=== PATIENT | female | born 1955 | race Caucasian/White ===

== ENCOUNTER 2020-06-14 16:43 | Emergency (ER) | payer MEDICARE, OTHER ==
[~2020-06-14] VITALS: Ht 172.7 cm; Wt 75.0 kg
[2020-06-14 17:17] LABS: HEMATOCRIT 35 % (35-52); MEAN CORPUSCULAR HEMOGLOBIN 34 PG (25-34); MEAN CORPUSCULAR HGB CONC 35 G/DL (32-36); MEAN CORPUSCULAR VOLUME 99 FL (80-99)
[2020-06-14 17:18] LABS: BASOPHILS # (AUTO) 0.1 10^3/uL (0.0-0.1); BASOPHILS % (AUTO) 2 % (0-10); EOSINOPHILS # (AUTO) 0.1 10^3/uL (0.0-0.3); EOSINOPHILS % (AUTO) 3 % (0-10); LYMPHOCYTES % (AUTO) 25 % (12-44); MEAN PLATELET VOLUME 10.8 FL (7.4-10.4); MONOCYTES # (AUTO) 0.3 X 10^3 (0.0-1.0); MONOCYTES % (AUTO) 7 % (0-12); NEUTROPHILS # (AUTO) 2.6 X 10^3 (1.8-7.8); NEUTROPHILS % (AUTO) 63 % (42-75); PLATELET COUNT 178 10^3/uL (130-400)
[2020-06-14 17:29] LABS: ALANINE AMINOTRANSFERASE 23 U/L (0-55); ALBUMIN 4.8 GM/DL (3.2-4.5); ALKALINE PHOSPHATASE 52 U/L (40-136); BILIRUBIN,TOTAL 0.6 MG/DL (0.1-1.0); BUN/CREATININE RATIO 10; CALCIUM 9.6 MG/DL (8.5-10.1); CARBON DIOXIDE 28 MMOL/L (21-32); CHLORIDE 97 MMOL/L (98-107); CREATININE SERUM 1.22 MG/DL (0.60-1.30); GFR ESTIMATED 44; GLUCOSE 135 MG/DL (70-105); POTASSIUM 3.7 MMOL/L (3.6-5.0); SODIUM 138 MMOL/L (135-145); TOTAL PROTEIN 7.3 GM/DL (6.4-8.2)
--- NOTE | 2020-06-14 17:33 | ED General ---
General Chief Complaint: Laceration Stated Complaint: LACERATIONS Nursing Triage Note: Patient presents to the ED via EMS with c/o right ear laceration that he was unable to get to stop bleeding. Patient reports that he was trying to feed his cats when he lost his balance and fell. He denies any loss of conciousness. Nursing Sepsis Screen: No Definite Risk Source of Information: Patient, EMS History of Present Illness Date Seen by Provider: Jun 14, 2020 Time Seen by Provider: 16:45 Initial Comments 65-year-old male presents via EMS with complaint of a fall and bleeding from his right ear. Patient denies loss of consciousness, headache or weakness. Patient does not have a primary care doctor, has not seen a doctor for years and is taking no medication. Does not know how he fell or what happened, he denies loss of consciousness and states that he does fall frequently and feels like he is off balance often and this is been going on for a long time. Denies any recent illness, fever or chills. Denies chest pain or shortness of air. Denies abdominal pain nausea vomiting or diarrhea. Has normal appetite. He does live alone and is otherwise without complaint other than the bleeding. Allergies and Home Medications Allergies Coded Allergies: No Known Drug Allergies (Unverified , 06/14/20) Patient Home Medication List Home Medication List Reviewed: Yes Review of Systems Review of Systems Constitutional: No dizziness, No fever, No malaise, No weakness EENTM: other (bleeding from Right ear- fall w injury); No ear discharge, No hearing loss, No ear pain, No blurred vision, No double vision, No eye pain, No vision loss Respiratory: no symptoms reported Cardiovascular: no symptoms reported Musculoskeletal: No back pain, No joint pain Skin: No change in color, No lesions, No rash Psychiatric/Neurological: See HPI; Denies Headache, Denies Numbness, Denies Paresthesia, Denies Seizure, Denies Tremors, Denies Weakness; Other (frequent falls) Past Menxorh-Jhjmqd-Tbhsbp Hx Past Med/Social Hx: Reviewed Nursing Past Med/Soc Hx Patient Social History Alcohol Use: Denies Use Smoking Status: Current Everyday Smoker Type Used: Cigarettes 2nd Hand Smoke Exposure: No Recent Infectious Disease Expo: No Recent Hopitalizations: No Seasonal Allergies Seasonal Allergies: No Past Medical History Surgeries: Yes (Cataract removal) Eye Surgery Respiratory: No Cardiac: No Neurological: No Genitourinary: No Gastrointestinal: No Musculoskeletal: No Endocrine: No HEENT: No Cataract Cancer: No Psychosocial: No Integumentary: No Blood Disorders: No Physical Exam Vital Signs Vital Signs - First Documented 06/14/20 16:43 Temp 35.8 Pulse 92 Resp 18 B/P (MAP) 140/99 (113) Pulse Ox 100 O2 Delivery Room Air Capillary Refill : Less Than 3 Seconds Height, Weight, BMI Height: '" Weight: lbs. oz. 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 3cm) Procedures/Interventions Wound Location: Ears Wound Length (cm): 3 Wound's Depth, Shape: irregular, contused tissue Wound Explored: clean Anesthesia: 0.5% Sensorcaine Volume Anesthetic (ccs): 4 Suture: Vicryl Suture Size: 5-0 Number of Sutures: 10 Sterile Dressing Applied?: Yes Progress/Results/Core Measures Suspected Sepsis Recent Fever Within 48 Hours: No Infection Criteria Present: None New/Unexplained Altered Menta: No Sepsis Screen: No Definite Risk SIRS Temperature: Pulse: 92 Respiratory Rate: 18 Laboratory Tests 06/14/20 17:00: White Blood Count 4.0L Blood Pressure 140 /99 Mean: 113 Laboratory Tests 06/14/20 17:00: Creatinine 1.22, Platelet Count 178, Total Bilirubin 0.6 Results/Orders Lab Results Laboratory Tests Test 06/14/20 17:00 Range/Units White Blood Count 4.0 L 4.3-11.0 10^3/uL Red Blood Count 3.51 L 4.35-5.85 10^6/uL Hemoglobin 12.0 11.5-16.0 G/DL Hematocrit 35 35-52 % Mean Corpuscular Volume 99 80-99 FL Mean Corpuscular Hemoglobin 34 25-34 PG Mean Corpuscular Hemoglobin Concent 35 32-36 G/DL Red Cell Distribution Width 13.1 10.0-14.5 % Platelet Count 178 130-400 10^3/uL Mean Platelet Volume 10.8 H 7.4-10.4 FL Immature Granulocyte % (Auto) 1 % Neutrophils (%) (Auto) 63 42-75 % Lymphocytes (%) (Auto) 25 12-44 % Monocytes (%) (Auto) 7 0-12 % Eosinophils (%) (Auto) 3 0-10 % Basophils (%) (Auto) 2 0-10 % Neutrophils # (Auto) 2.6 1.8-7.8 X 10^3 Lymphocytes # (Auto) 1.0 1.0-4.0 X 10^3 Monocytes # (Auto) 0.3 0.0-1.0 X 10^3 Eosinophils # (Auto) 0.1 0.0-0.3 10^3/uL Basophils # (Auto) 0.1 0.0-0.1 10^3/uL Immature Granulocyte # (Auto) 0.0 0.0-0.1 10^3/uL Sodium Level 138 135-145 MMOL/L Potassium Level 3.7 3.6-5.0 MMOL/L Chloride Level 97 L 98-107 MMOL/L Carbon Dioxide Level 28 21-32 MMOL/L Anion Gap 13 5-14 MMOL/L Blood Urea Nitrogen 12 7-18 MG/DL Creatinine 1.22 0.60-1.30 MG/DL Estimat Glomerular Filtration Rate 44 BUN/Creatinine Ratio 10 Glucose Level 135 H 70-105 MG/DL Calcium Level 9.6 8.5-10.1 MG/DL Corrected Calcium 8.5-10.1 MG/DL Total Bilirubin 0.6 0.1-1.0 MG/DL Aspartate Amino Transf (AST/SGOT) 33 5-34 U/L Alanine Aminotransferase (ALT/SGPT) 23 0-55 U/L Alkaline Phosphatase 52 40-136 U/L Total Protein 7.3 6.4-8.2 GM/DL Albumin 4.8 H 3.2-4.5 GM/DL Serum Alcohol < 10 <10 MG/DL My Orders Orders - ROVENSTINE,YAJAIRA L DO Ed Iv/Invasive Line Start (06/14/20 16:53) Comprehensive Metabolic Panel (06/14/20 16:53) Cbc With Automated Diff (06/14/20 16:53) Alcohol (06/14/20 16:58) Vital Signs/I&O 06/14/20 06/14/20 16:43 18:00 Temp 35.8 35.8 Pulse 92 87 Resp 18 18 B/P (MAP) 140/99 (113) 152/87 (113) Pulse Ox 100 100 O2 Delivery Room Air Capillary Refill : Less Than 3 Seconds Blood Pressure Mean: 113 Departure Impression Primary Impression: Frequent falls Additional Impression: Laceration of ear, external, right Qualified Codes: S01.311A - Laceration without foreign body of right ear, initial encounter Disposition: 01 HOME, SELF-CARE Condition: Improved Departure-Patient Inst. Decision time for Depature: 17:28 Patient Instructions: Laceration Repair With Stitches ED Add. Discharge Instructions: establish a medical provider through the [facility] clinic. Call tomorrow to schedule an appointment in the next 1 to 2 weeks regarding your frequent falls. Your stitches on your right ear are dissolvable and do not need to be removed unless still present in 2 weeks. All discharge instructions reviewed with patient and/or family. Voiced understanding. YAJAIRA ROGERS DO Jun 14, 2020 17:33
[2020-06-14 18:00] VITALS: BP 152/87
== END 2020-06-14 18:02 | disposition home or self-care (01) ==
LOC: ER FS 16:44
DX: S01.311A Laceration without foreign body of right ear, initial encounter (principal); R29.6 Repeated falls; F17.210 Nicotine dependence, cigarettes, uncomplicated; W19.XXXA Unspecified fall, initial encounter
CPT/HCPCS: 36415; 80053; 85025; 99284; G0480; 80320

== ENCOUNTER → 2020-07-05 | Outpatient (CLI) | payer MEDICARE ==
[2020-07-05 11:44] LABS: BUN/CREATININE RATIO 22; CARBON DIOXIDE 26 MMOL/L (21-32); CHLORIDE 105 MMOL/L (98-107); CREATININE SERUM 0.98 MG/DL (0.60-1.30); GFR ESTIMATED > 60; POTASSIUM 3.8 MMOL/L (3.6-5.0); SODIUM 141 MMOL/L (135-145)
[2020-07-05 11:45] LABS: ALANINE AMINOTRANSFERASE 10 U/L (0-55); ALBUMIN 4.7 GM/DL (3.2-4.5); ALKALINE PHOSPHATASE 49 U/L (40-136); BILIRUBIN,TOTAL 0.4 MG/DL (0.1-1.0); CALCIUM 10.1 MG/DL (8.5-10.1); GLUCOSE 98 MG/DL (70-105); TOTAL PROTEIN 7.7 GM/DL (6.4-8.2)
--- NOTE | 2020-07-05 13:06 | Diagnostic Imaging Report ---
PROCEDURE: CT head without contrast. TECHNIQUE: Multiple contiguous axial images were obtained through the brain without the use of intravenous contrast. Auto Exposure Controls were utilized during the CT exam to meet ALARA standards for radiation dose reduction. INDICATION: Right lower extremity weakness. CORRELATION STUDY: None. FINDINGS: Generalized atrophic changes with prominence of the ventricles and sulci. Scattered areas of decreased attenuation likely reflect small vessel ischemic disease of at least moderate severity. More focal larger lacunar type infarct adjacent to the caudate head on the right. Definitive area of decreased attenuation suggesting edema is not demonstrated. No midline shift or mass effect. No intracranial hemorrhage. No hyperdense intracranial vascular sign. Somewhat crescentic hyperdensity is noted occupying the posterior third of the left globe. IMPRESSION: 1. Negative for acute intracranial abnormality. Generalized atrophic changes along with rather prominent findings of likely small vessel ischemic disease. Subtle areas of edema could go undetected given the chronic appearing changes. If symptoms persist and/or clinically warranted, correlation with an MRI would be recommended. 2. Abnormal hyperdensity in the posterior third left globe. This may be reflective of an underlying retinal hemorrhage. Solid mass such as melanoma is also a consideration. Dictated by: Dictated on workstation # [id number]
== END ==
LOC: RAD FS 10:26
PROVIDERS: ATTEND Nurse Practitioner Family
DX: R29.898 Other symptoms and signs involving the musculoskeletal system (principal); R29.6 Repeated falls
CPT/HCPCS: 36415; 70450; 80053

== ENCOUNTER 2021-10-05 11:10 | Inpatient (IN) | payer MEDICARE, MEDICAID ==
[~2021-10-05] VITALS: Ht 172 cm; Wt 70.8 kg
[2021-10-05] MEDS ORDERED: NS IV 1000 ML 1,000 ML IV STA ×2 (11:52→13:12)
[2021-10-05 12:04] LABS: HEMATOCRIT 22 % (40-54); HEMOGLOBIN 7.6 g/dL (13.3-17.7); MEAN CORPUSCULAR HEMOGLOBIN 38 pg (25-34); MEAN CORPUSCULAR VOLUME 109 fL (80-99); WHITE BLOOD COUNT 8.8 10^3/uL (4.3-11.0)
[2021-10-05 12:05] LABS: BASOPHILS % (AUTO) 0 % (0-10); EOSINOPHILS % (AUTO) 0 % (0-10); LYMPHOCYTES # (AUTO) 0.5 X 10^3 (1.0-4.0); LYMPHOCYTES % (AUTO) 6 % (12-44); MEAN CORPUSCULAR HGB CONC 35 g/dL (32-36); MONOCYTES % (AUTO) 6 % (0-12); NEUTROPHILS # (AUTO) 7.7 X 10^3 (1.8-7.8); NEUTROPHILS % (AUTO) 87 % (42-75); PLATELET COUNT 142 10^3/uL (130-400)
--- NOTE | 2021-10-05 12:05 | ED General ---
General Chief Complaint: General Problems/Pain Stated Complaint: THIRSTY Nursing Triage Note: PT REPORTS EXCESSSIVE THIRST. Source of Information: Patient History of Present Illness Date Seen by Provider: Oct 05, 2021 Time Seen by Provider: 11:14 Initial Comments 66-year-old male presenting with complaints of excessive thirst. He states he has been really thirsty and was worried he may have diabetes. He also has pain in the right upper quadrant at times. He lives alone and reports that he does not have anyone helping him at home. He is disheveled and has poor hygiene. He has 3+ pitting edema to his bilateral lower extremities. He denies having any pain anywhere. He states he also has trouble controlling his urine and knows that there is some medicine he could be given to help with that. He denies having pain when he goes to urinate. He denies having cough, chest pain, nausea, vomiting, diarrhea, constipation, fever, chills, burning with urination. He is unable to tell me exactly how long he has been having swelling in his legs. He has slurred speech but he states that that is how he normally talks. 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 He presents with the complaint of being thirsty and concerned that he might be dehydrated or might be diabetic. Severity: Moderate Associated Systoms: No Chest Pain, No Cough, No Diaphoresis, No Fever/Chills, No Headaches, No Loss of Appetite; Malaise; No Nausea/Vomiting, No Rash, No Seizure, No Shortness of Air, No Syncope; Weakness (general) Allergies and Home Medications Allergies Coded Allergies: No Known Drug Allergies (Unverified , 06/14/20) Patient Home Medication List Home Medication List Reviewed: Yes Review of Systems Review of Systems Constitutional: see HPI; No chills, No fever; malaise, weakness EENTM: other (dry mucous membranes) Respiratory: No cough, No short of breath Cardiovascular: No chest pain; edema Gastrointestinal: abdominal pain (RUQ); No constipation, No diarrhea, No melena, No nausea, No vomiting Genitourinary: No dysuria; frequency Musculoskeletal: no symptoms reported Skin: no symptoms reported Psychiatric/Neurological: Weakness (general) Hematologic/Lymphatic: Easy Bleeding, Easy Bruising Past [id number]-Lrzvyh Hx Patient Social History Tobacco Use?: Yes Tobacco type used: Cigarettes Smoking Status: Current Everyday Smoker Use of E-Cig and/or Vaping dev: No Substance use?: No Alcohol Use?: No Pt feels they are or have been: No Seasonal Allergies Seasonal Allergies: No Past Medical History Surgeries: Yes (Cataract removal) Eye Surgery Respiratory: No Cardiac: No Neurological: No Genitourinary: No Gastrointestinal: No Musculoskeletal: No Endocrine: No HEENT: No Cataract Cancer: No Psychosocial: No Integumentary: No Blood Disorders: No Physical Exam Vital Signs Vital Signs - First Documented 10/05/21 11:15 Temp 36.5 Pulse 85 Resp 18 B/P (MAP) 114/66 (82) Pulse Ox 92 O2 Delivery Room Air Capillary Refill : Less Than 3 Seconds Height, Weight, BMI Height: '" Weight: lbs. oz. kg; 26.00 BMI Method: General Appearance: No Apparent Distress, Other (appears chronically ill and older than stated age. poor personal hygiene) Eyes: Bilateral Eye EOMI HEENT: No PERRL/EOMI (left eye with dilated pupil that is not reactive. pt states he is blind in left eye. normal EOMI bilaterally), No Moist Mucous Membranes (slightly dry mucous membranes) Neck: Full Range of Motion, Normal Inspection, Non Tender, Supple Respiratory: Chest Non Tender, Lungs Clear, Normal Breath Sounds, No Accessory Muscle Use, No Respiratory Distress Cardiovascular: Regular Rate, Rhythm, Normal Peripheral Pulses Gastrointestinal: Normal Bowel Sounds, No Pulsatile Mass, Soft; No Distended, No Guarding, No Rebound; Tenderness (mild tenderness to RUQ without guarding or rebound) Rectal: Deferred Back: No CVA Tenderness, No Vertebral Tenderness Extremity: Normal Capillary Refill, Normal Range of Motion, Non Tender, No Calf Tenderness, Pedal Edema (3 + pitting edema to BLE up above his knees) Neurologic/Psychiatric: Alert, Oriented x3, 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 Norm as Tested Skin: Warm/Dry, Pallor Procedures/Interventions Suture Size: 5-0 Progress/Results/Core Measures Suspected Sepsis SIRS Temperature: Pulse: 85 Respiratory Rate: 18 Laboratory Tests 10/05/21 11:41: White Blood Count 8.8 Blood Pressure 114 /66 Mean: 82 Laboratory Tests 10/05/21 11:41: Creatinine 1.28, INR Comment 1.3, Platelet Count 142, Total Bilirubin 1.4H Results/Orders Lab Results Laboratory Tests Test 10/05/21 11:26 10/05/21 11:41 10/05/21 13:44 Range/Units Glucometer 125 H 70-110 MG/DL White Blood Count 8.8 4.3-11.0 10^3/uL Red Blood Count 2.01 L 4.30-5.52 10^6/uL Hemoglobin 7.6 L 13.3-17.7 g/dL Hematocrit 22 L 40-54 % Mean Corpuscular Volume 109 H 80-99 fL Mean Corpuscular Hemoglobin 38 H 25-34 pg Mean Corpuscular Hemoglobin Concent 35 32-36 g/dL Red Cell Distribution Width 20.0 H 10.0-14.5 % Platelet Count 142 130-400 10^3/uL Mean Platelet Volume 11.0 9.0-12.2 fL Immature Granulocyte % (Auto) 1 % Neutrophils (%) (Auto) 87 H 42-75 % Lymphocytes (%) (Auto) 6 L 12-44 % Monocytes (%) (Auto) 6 0-12 % Eosinophils (%) (Auto) 0 0-10 % Basophils (%) (Auto) 0 0-10 % Neutrophils # (Auto) 7.7 1.8-7.8 X 10^3 Lymphocytes # (Auto) 0.5 L 1.0-4.0 X 10^3 Monocytes # (Auto) 0.5 0.0-1.0 X 10^3 Eosinophils # (Auto) 0.0 0.0-0.3 10^3/uL Basophils # (Auto) 0.0 0.0-0.1 10^3/uL Immature Granulocyte # (Auto) 0.1 0.0-0.1 10^3/uL Neutrophils % (Manual) 86 % Lymphocytes % (Manual) 11 % Monocytes % (Manual) 3 % Eosinophils % (Manual) 0 % Basophils % (Manual) 0 % Band Neutrophils 0 % Polychromasia SLIGHT Anisocytosis SLIGHT Acanthocytes SLIGHT Prothrombin Time 16.5 H 12.2-14.7 SEC INR Comment 1.3 0.8-1.4 Activated Partial Thromboplast Time 44 H 24-35 SEC Sodium Level 139 135-145 MMOL/L Potassium Level 3.7 3.6-5.0 MMOL/L Chloride Level 106 98-107 MMOL/L Carbon Dioxide Level 22 21-32 MMOL/L Anion Gap 11 5-14 MMOL/L Blood Urea Nitrogen 36 H 7-18 MG/DL Creatinine 1.28 0.60-1.30 MG/DL Estimat Glomerular Filtration Rate 61 BUN/Creatinine Ratio 28 Glucose Level 119 H 70-105 MG/DL Calcium Level 8.9 8.5-10.1 MG/DL Corrected Calcium 9.5 8.5-10.1 MG/DL Total Bilirubin 1.4 H 0.1-1.0 MG/DL Aspartate Amino Transf (AST/SGOT) 148 H 5-34 U/L Alanine Aminotransferase (ALT/SGPT) 101 H 0-55 U/L Alkaline Phosphatase 432 H 40-136 U/L Pro-B-Type Natriuretic Peptide 4607.0 H <125.0 PG/ML Total Protein 5.4 L 6.4-8.2 GM/DL Albumin 3.3 3.2-4.5 GM/DL Lipase 265 H 8-78 U/L Serum Alcohol < 10 <10 MG/DL Urine Color BROWN H Urine Clarity TURBID Urine pH 5.0 5-9 Urine Specific [place] 1.020 1.016-1.022 Urine Protein TRACE H NEGATIVE Urine Glucose (UA) NEGATIVE NEGATIVE Urine Ketones 1+ H NEGATIVE Urine Nitrite NEGATIVE NEGATIVE Urine Bilirubin 3+ H NEGATIVE Urine Urobilinogen 0.2 < = 1.0 MG/DL Urine Leukocyte Esterase NEGATIVE NEGATIVE Urine RBC (Auto) 3+ H NEGATIVE Urine RBC >100 H /HPF Urine WBC 0-2 /HPF Urine Squamous Epithelial Cells RARE /HPF Urine Crystals NONE /LPF Urine Bacteria TRACE /HPF Urine Casts NONE /LPF Urine Mucus NEGATIVE /LPF Urine Culture Indicated NO Urine Opiates Screen NEGATIVE NEGATIVE Urine Oxycodone Screen NEGATIVE NEGATIVE Urine Methadone Screen NEGATIVE NEGATIVE Urine Propoxyphene Screen NEGATIVE NEGATIVE Urine Barbiturates Screen NEGATIVE NEGATIVE Ur Tricyclic Antidepressants Screen NEGATIVE NEGATIVE Urine Phencyclidine Screen NEGATIVE NEGATIVE Urine Amphetamines Screen NEGATIVE NEGATIVE Urine Methamphetamines Screen NEGATIVE NEGATIVE Urine Benzodiazepines Screen NEGATIVE NEGATIVE Urine Cocaine Screen NEGATIVE NEGATIVE Urine Cannabinoids Screen NEGATIVE NEGATIVE My Orders Orders - SILVIA HILTON MD Accucheck Stat ONCE (10/05/21 11:33) Ua Culture If Indicated (10/05/21 11:33) Drug Screen Stat (Urine) (10/05/21 11:33) Comprehensive Metabolic Panel (10/05/21 11:52) Lipase (10/05/21 11:52) Ed Iv/Invasive Line Start (10/05/21 11:52) Cbc With Automated Diff (10/05/21 11:52) Ct Abdomen/Pelvis Wo (10/05/21 11:52) Ct Head Wo (10/05/21 11:52) Alcohol (10/05/21 11:52) Ns Iv 1000 Ml (Sodium Chloride 0.9%) (10/05/21 11:52) Probnp Fs (10/05/21 11:52) Manual Differential (10/05/21 11:41) Ct Angio Abdomen/Pelv W (10/05/21 12:40) Iohexol Injection (Omnipaque 350 Mg/Ml 1 (10/05/21 12:45) Received Contrast (Hold Metformin- Contr (10/05/21 12:45) Sodium Chloride Flush (Catheter Flush Sy (10/05/21 12:45) Ns (Ivpb) (Sodium Chloride 0.9% Ivpb Bag (10/05/21 12:45) Protime With Inr (10/05/21 12:56) Partial Thromboplastin Time (10/05/21 12:56) Straight Cath For Spec.-Adult (10/05/21 13:12) Ns Iv 1000 Ml (Sodium Chloride 0.9%) (10/05/21 13:12) Medications Given in ED Current Medications Medications Dose Ordered Sig/Yessy Route Start Time Stop Time Status Last Admin Dose Admin Iohexol 100 ml ONCE ONCE IV 10/05/21 12:45 10/05/21 12:47 DC 10/05/21 13:04 100 ML Sodium Chloride 10 ml NEEDED PRN IV 10/05/21 12:45 10/05/21 13:04 10 ML Sodium Chloride 100 ml ONCE ONCE IV 10/05/21 12:45 10/05/21 12:47 DC 10/05/21 13:04 100 ML Vital Signs/I&O 10/05/21 10/05/21 11:15 15:47 Temp 36.5 36.4 Pulse 85 82 Resp 18 16 B/P (MAP) 114/66 (82) 116/73 Pulse Ox 92 97 O2 Delivery Room Air Room Air Capillary Refill : Less Than 3 Seconds Blood Pressure Mean: 82 Point of Care Testing Finger Stick Blood Glucose: 125 Blood Glucose Action Taken: NONE Progress Note #1: Progress Note check basic labs and urine. proBNP since he has pitting edema to BLE. CT head since he has weakness and slurred speech, CT abd/pelvis without contrast with his RUQ abd pain. Give NS 1 L bolus for hydration. Progress Note #2: Progress Note Labs show anemia with Hgb 7.6, elevated MCV of 109. His INR is 1.3. In terms of his chemistry has basic electrolytes looked okay. His LFTs were elevated. His total bilirubin was 1.4, AST 148, ALT 101, alkaline phosphatase 432, lipase 265. His proBNP was elevated to 4607. His alcohol level was less than 10. Urinalysis showed some blood but it was obtained by straight cath. He had negative urine drug screen. His CT head did not show any acute process and appeared stable from a CT head done in 2020 after a fall. He had signs of mul tiple masses in his liver on the CT scan of his abdomen and pelvis. This was initially done without contrast since I was unsure what his liver function would be. However when discussing with the radiologist he recommended obtaining IV contrast to look for possible hemorrhage within some of the liver masses. If this was the case the patient would need to go someplace and could embolize or stop the bleeding. I updated the patient on the findings so far and that it looks like there could be cancer involving his liver and we needed to do IV contrast check for bleeding and a better look at his liver. When I asked him about admission to a bigger hospital if he was not able to go to [place] a request to [place] because he felt that it would be closer than going to [place]. Progress Note #3: Progress Note CT angiogram of the abdomen and pelvis was performed and radiology read that out as showing multiple masses in his liver but no signs of acute active hemorrhaging. He had thickening of the gastric wall concerning for possible primary source of cancer. He also had what appeared to be a pathologic compression fracture of T10. He had ascites throughout his abdomen pelvis. Discussed with Dr. Alfaro as the patient used to see nurse practitioner Willow Johnson. She accepted admit but did request cardiac stepdown bed and surgery consult for possible paracentesis to check for cytology and cancer cells. I updated Dr Schmidt about consult. Progress Note #4: Progress Note When EMS arrived to take the patient he had suddenly changed his mind and said that he would not go to [place]. He had decided that his abdominal pain and what we were seeing on the CT scan were due to a fall he had had at home. He felt that the IV fluids we were giving him would help and he would not need to be admitted. He did not want to have to be admitted for a few days in the hospital to get any other testing. I again reviewed with him about the CT scan showing cancer and concern for cancer into his bone as well. He was advised that we could not force him to be admitted to the hospital but that would be the best way to help address his new onset of abdominal pain and newly found cancer on testing today. They could help delineate what the cancer was and what possible treatments he might be a candidate for. He did again agreed to be admitted to have this additional work-up done. An ammonia level was ordered for lab work when he arrives to [place] to check and see if he was having encephalopathy affecting his mentation Diagnostic Imaging Diagonstic Imaging: CT Plain Films/CT/US/NM/MRI: head Comments NAME: BIENVENIDO MCGRAW [facility] REC#: [id number] PT STATUS: REG ER : 1955 PHYSICIAN: SILVIA HILTON MD ADMIT DATE: 10/05/21/ER FS Draft Date of Exam:10/05/21 CT HEAD WO PROCEDURE: CT head without contrast. TECHNIQUE: Multiple contiguous axial images were obtained through the brain without the use of intravenous contrast. Auto Exposure Controls were utilized during the CT exam to meet ALARA standards for radiation dose reduction. INDICATION: Lethargy and weakness. COMPARISON: Head CT from 07/05/2020. FINDINGS: Hyperdensity in the posterior third of the left globus appears similar to the prior CT. The ventricles and sulci are prominent, consistent with cerebral volume loss. There is extensive periventricular low-attenuation, consistent with chronic microvascular ischemia. There appears be an old lacunar infarct in the region of the right internal capsule. No sulcal effacement or midline shift is identified. No acute intra-axial or extra-axial hemorrhage is detected. The cisterns are patent. The visualized paranasal sinuses are clear. IMPRESSION: Stable chronic changes when compared with the prior head CT from 07/05/2020. No acute intracranial process is detected. Dictated on workstation # [id number] Dict: 10/05/21 1230 Trans: 10/05/21 1236 [id number] Interpreted by: ROMELIA NGUYEN MD Electronically signed by: Reviewed: Reviewed by Me Diagonstic Imaging: CT Plain Films/CT/US/NM/MRI: abdomen, pelvis Comments NAME: BIENVENIDO MCGRAW REC#: [id number] PT STATUS: REG ER : 1955 PHYSICIAN: SILVIA HILTON MD ADMIT DATE: 10/05/21/ER FS Draft Date of Exam:10/05/21 CT ABDOMEN/PELVIS WO PROCEDURE: CT abdomen and pelvis without contrast. TECHNIQUE: Multiple contiguous axial images were obtained through the abdomen and pelvis without the use of intravenous contrast. Auto Exposure Controls were utilized during the CT exam to meet ALARA standards for radiation dose reduction. INDICATION: Lethargy, weakness, and dehydration as well as right upper quadrant abdominal pain. COMPARISON: No prior studies are available for comparison. FINDINGS: The lung bases demonstrate some subpleural cystic changes and linear scarring. No infiltrates are detected. There is a marked heterogeneous appearance to the liver. There appear to be innumerable masses throughout the liver, consistent with hepatic metastatic disease. There is some perihepatic fluid present as well. A very large mass appears to be rising from the inferior right lobe of the liver. There are areas of hyperdensity within the lesion which may represent intralesional hemorrhage. This mass appears to be displacing the pancreas to the left. The pancreas and spleen are unremarkable. No adrenal mass is detected. The kidneys are unremarkable. The aorta is calcified and is mildly aneurysmal at 3.3 cm. The small and large bowel loops are of normal caliber. There is diverticulosis of the sigmoid but no evidence of acute diverticulitis. There is a moderate amount of free fluid in the pelvis. The bladder and prostate are unremarkable. IMPRESSION: Significant abnormal appearance of the liver which appears to contain multiple lesions suggestive of hepatic metastatic disease. There is a large mass with internal hyperdensity in the inferior right lobe, suspicious for intralesional hemorrhage. Acute bleeding cannot be entirely excluded and CT angiography with arterial and portal venous phase imaging would be recommended for further characterization. There is a moderate amount of free fluid in the abdomen and pelvis. These results were discussed with Dr. Justo Hilton of the Emergency Department prior to this dictation. Dictated on workstation # [id number] Dict: 10/05/21 1233 Trans: 10/05/21 1300 [id number] Interpreted by: ROMELIA NGUYEN MD Electronically signed by: Reviewed: Reviewed by Me, Discussed w/Radiologist Diagonstic Imaging: CT (angiogram) Plain Films/CT/US/NM/MRI: abdomen, pelvis Comments NAME: BIENVENIDO MCGRAW [facility] REC#: [id number] PT STATUS: REG ER : 1955 PHYSICIAN: SILVIA HILTON MD ADMIT DATE: 10/05/21/ER FS Draft Date of Exam:10/05/21 CT ANGIO ABDOMEN/PELV W EXAMINATION: CT angiography of the abdomen and pelvis. TECHNIQUE: After intravenous administration of contrast, thin section axial CT angiography of the abdomen and pelvis were obtained. 3D MIP reformats were provided. All CT scans use one or more of the following dose optimizing techniques: Automated exposure control, MA and/or KvP adjustment based on a patient size and exam type, or iterative reconstruction. HISTORY: Right upper quadrant pain, liver mass. COMPARISON: Earlier the same day. FINDINGS: Limited views of the lower thorax are unremarkable. Liver is enlarged with extensive masses throughout the liver. The largest is in the right hemiliver and measures 13 x 9 cm. There is internal high attenuation within this lesion but no active extravasation of contrast. Lesions involve all segments of the liver. There is no biliary ductal dilation. Gallbladder is not seen. Pancreatic duct is mildly dilated. No pancreatic mass is seen. Spleen is normal. Adrenal glands are normal. The kidneys are normal. There is no hydronephrosis. Urinary bladder is normal. There is gastric wall thickening with submucosal edema and mucosal hyperenhancement. Small amount of free fluid is present in the abdomen. No free air. There is a 3.0 x 3.3 cm abdominal aortic aneurysm. There is a moderate T10 compression fracture with heterogeneity of the fractured bone suggestive of a pathologic compression fracture. IMPRESSION: 1. Extensive liver masses with the largest showing internal areas of hemorrhage. No active extravasation is seen. Findings are most suggestive of metastatic disease. 2. Gastric wall thickening with mucosal hyperenhancement and submucosal edema favored to represent gastritis but could potentially represent a primary gastric malignancy. 3. Moderate T10 compression fracture with heterogeneity of the fractured bone suggestive of a pathologic compression fracture. Dictated on workstation # [id number] Dict: 10/05/21 1323 Trans: 10/05/21 1343 [id number] Interpreted by: MATT MATA MD Electronically signed by: Reviewed: Reviewed by Me Departure Communication (Admissions) Time/Spoke to Admitting Phy: 14:36 d/w Dr. Alfaro and will admit for hydration and evaluation of liver masses and paracentesis of ascites to check for cancer cells. She did request that pt be admitted to Cardiac Stepdown unit and consult surgery for possible paracentesis. Time/Spoke to Consulting Phy: 14:39 d/w Dr. Schmidt to let him know of consult of pt being admitted. Impression Primary Impression: Liver masses Additional Impressions: Bilateral leg edema Gastric wall thickening Pathologic compression fracture of thoracic vertebra Qualified Codes: M48.54XA - Collapsed vertebra, not elsewhere classified, thoracic region, initial encounter for fracture Disposition: 30 STILL A PATIENT Condition: Stable Admissions Decision to Admit Reason: Admit from ER (General) Decision to Admit/Date: Oct 05, 2021 Time/Decision to Admit Time: 14:36 Departure-Patient Inst. [place] [facility] [place] [facility] [place] Primary Care Physician SILVIA HILTON MD Oct 05, 2021 12:05
[2021-10-05 12:06] LABS: MONOCYTES # (AUTO) 0.5 X 10^3 (0.0-1.0)
[2021-10-05 12:23] LABS: BAND NEUTROPHILS 0 %; BASOPHILS % (MANUAL) 0 %; EOSINOPHILS % (MANUAL) 0 %; LYMPHOCYTES % (MANUAL) 11 %; MONOCYTES % (MANUAL) 3 %; NEUTROPHILS % (MANUAL) 86 %
[2021-10-05 12:24] LABS: ACANTHOCYTES SLIGHT; ANISOCYTOSIS SLIGHT; POLYCHROMASIA SLIGHT
[2021-10-05 12:29] LABS: ALKALINE PHOSPHATASE 432 U/L (40-136); BILIRUBIN,TOTAL 1.4 MG/DL (0.1-1.0); BUN/CREATININE RATIO 28; CALCIUM 8.9 MG/DL (8.5-10.1); CARBON DIOXIDE 22 MMOL/L (21-32); CHLORIDE 106 MMOL/L (98-107); CREATININE SERUM 1.28 MG/DL (0.60-1.30); GFR ESTIMATED 61; GLUCOSE 119 MG/DL (70-105); POTASSIUM 3.7 MMOL/L (3.6-5.0); SODIUM 139 MMOL/L (135-145)
[2021-10-05 12:30] LABS: ALANINE AMINOTRANSFERASE 101 U/L (0-55); ALBUMIN 3.3 GM/DL (3.2-4.5); LIPASE 265 U/L (8-78); TOTAL PROTEIN 5.4 GM/DL (6.4-8.2)
--- NOTE | 2021-10-05 12:36 | Diagnostic Imaging Report ---
PROCEDURE: CT head without contrast. TECHNIQUE: Multiple contiguous axial images were obtained through the brain without the use of intravenous contrast. Auto Exposure Controls were utilized during the CT exam to meet ALARA standards for radiation dose reduction. INDICATION: Lethargy and weakness. COMPARISON: Head CT from 07/05/2020. FINDINGS: Hyperdensity in the posterior third of the left globus appears similar to the prior CT. The ventricles and sulci are prominent, consistent with cerebral volume loss. There is extensive periventricular low-attenuation, consistent with chronic microvascular ischemia. There appears be an old lacunar infarct in the region of the right internal capsule. No sulcal effacement or midline shift is identified. No acute intra-axial or extra-axial hemorrhage is detected. The cisterns are patent. The visualized paranasal sinuses are clear. IMPRESSION: Stable chronic changes when compared with the prior head CT from 07/05/2020. No acute intracranial process is detected. Dictated by: Dictated on workstation # [id number]
[2021-10-05] MEDS ORDERED: HOLD METFORMIN - RECEIVED CONTRAST 20 ML VIAL IV SCH (12:45)
[2021-10-05] MEDS ORDERED: NS 100 ML (IVPB) BAG IV ONE (12:45)
[2021-10-05] MEDS ORDERED: CATHETER FLUSH 10 ML SYR IV PRN (12:45)
[2021-10-05] MEDS ORDERED: IOHEXOL 350 MG/ML 100 ML (OMNIPAQUE 350) VIAL IV ONE (12:45)
--- NOTE | 2021-10-05 13:01 | Diagnostic Imaging Report ---
PROCEDURE: CT abdomen and pelvis without contrast. TECHNIQUE: Multiple contiguous axial images were obtained through the abdomen and pelvis without the use of intravenous contrast. Auto Exposure Controls were utilized during the CT exam to meet ALARA standards for radiation dose reduction. INDICATION: Lethargy, weakness, and dehydration as well as right upper quadrant abdominal pain. COMPARISON: No prior studies are available for comparison. FINDINGS: The lung bases demonstrate some subpleural cystic changes and linear scarring. No infiltrates are detected. There is a marked heterogeneous appearance to the liver. There appear to be innumerable masses throughout the liver, consistent with hepatic metastatic disease. There is some perihepatic fluid present as well. A very large mass appears to be rising from the inferior right lobe of the liver. There are areas of hyperdensity within the lesion which may represent intralesional hemorrhage. This mass appears to be displacing the pancreas to the left. The pancreas and spleen are unremarkable. No adrenal mass is detected. The kidneys are unremarkable. The aorta is calcified and is mildly aneurysmal at 3.3 cm. The small and large bowel loops are of normal caliber. There is diverticulosis of the sigmoid but no evidence of acute diverticulitis. There is a moderate amount of free fluid in the pelvis. The bladder and prostate are unremarkable. IMPRESSION: Significant abnormal appearance of the liver which appears to contain multiple lesions suggestive of hepatic metastatic disease. There is a large mass with internal hyperdensity in the inferior right lobe, suspicious for intralesional hemorrhage. Acute bleeding cannot be entirely excluded and CT angiography with arterial and portal venous phase imaging would be recommended for further characterization. There is a moderate amount of free fluid in the abdomen and pelvis. These results were discussed with Dr. Justo Kenyon of the Emergency Department prior to this dictation. Dictated by: Dictated on workstation # [id number]
[2021-10-05 13:12] LABS: INR 1.3 (0.8-1.4); PROTHROMBIN TIME PATIENT 16.5 SEC (12.2-14.7)
--- NOTE | 2021-10-05 13:44 | Diagnostic Imaging Report ---
EXAMINATION: CT angiography of the abdomen and pelvis. TECHNIQUE: After intravenous administration of contrast, thin section axial CT angiography of the abdomen and pelvis were obtained. 3D MIP reformats were provided. All CT scans use one or more of the following dose optimizing techniques: Automated exposure control, MA and/or KvP adjustment based on a patient size and exam type, or iterative reconstruction. HISTORY: Right upper quadrant pain, liver mass. COMPARISON: Earlier the same day. FINDINGS: Limited views of the lower thorax are unremarkable. Liver is enlarged with extensive masses throughout the liver. The largest is in the right hemiliver and measures 13 x 9 cm. There is internal high attenuation within this lesion but no active extravasation of contrast. Lesions involve all segments of the liver. There is no biliary ductal dilation. Gallbladder is not seen. Pancreatic duct is mildly dilated. No pancreatic mass is seen. Spleen is normal. Adrenal glands are normal. The kidneys are normal. There is no hydronephrosis. Urinary bladder is normal. There is gastric wall thickening with submucosal edema and mucosal hyperenhancement. Small amount of free fluid is present in the abdomen. No free air. There is a 3.0 x 3.3 cm abdominal aortic aneurysm. There is a moderate T10 compression fracture with heterogeneity of the fractured bone suggestive of a pathologic compression fracture. IMPRESSION: 1. Extensive liver masses with the largest showing internal areas of hemorrhage. No active extravasation is seen. Findings are most suggestive of metastatic disease. 2. Gastric wall thickening with mucosal hyperenhancement and submucosal edema favored to represent gastritis but could potentially represent a primary gastric malignancy. 3. Moderate T10 compression fracture with heterogeneity of the fractured bone suggestive of a pathologic compression fracture. Dictated by: Dictated on workstation # [id number]
[2021-10-05 13:50] LABS: CLARITY,URINE TURBID; COLOR,URINE BROWN; GLUCOSE, URINE (UA) NEGATIVE (NEGATIVE); KETONES,URINE 1+ (NEGATIVE); LEUKOCYTE ESTERASE ,URINE NEGATIVE (NEGATIVE); NITRITE,URINE NEGATIVE (NEGATIVE); PROTEIN,URINE TRACE (NEGATIVE)
[2021-10-05 14:18] LABS: BACTERIA,URINE TRACE /HPF; BILIRUBIN,URINE 3+ (NEGATIVE); RBC,URINE >100 /HPF; SQUAMOUS EPITHELIAL CELL,UR RARE /HPF; WBC,URINE 0-2 /HPF
[2021-10-05 14:19] LABS: AMPHETAMINE SCREEN, URINE NEGATIVE (NEGATIVE); BARBITURATE SCREEN URINE NEGATIVE (NEGATIVE); BENZODIAZEPINES SCREEN URINE NEGATIVE (NEGATIVE); CANNABINOID SCREEN, URINE NEGATIVE (NEGATIVE); COCAINE SCREEN URINE NEGATIVE (NEGATIVE); METHADONE STAT NEGATIVE (NEGATIVE); OPIATE SCREEN URINE NEGATIVE (NEGATIVE); OXYCODONE STAT NEGATIVE (NEGATIVE); PROPOXYPHENE STAT NEGATIVE (NEGATIVE); TRICYCLIC ANTIDEPRESSANTS SCRE NEGATIVE (NEGATIVE)
[2021-10-05 17:15] VITALS: BP 95/62
[2021-10-05] MEDS: NS IV 1000 ML 1,000 ML IV SCH (18:22)
[2021-10-05 19:47] VITALS: BP 116/65
[2021-10-06] VITALS (10 sets, daily range): BP systolic 94–111; BP diastolic 56–67
[2021-10-06] MEDS: NS IV 1000 ML 1,000 ML IV SCH (03:01)
[2021-10-06 06:44] LABS: BASOPHILS % (AUTO) 0 % (0-10); EOSINOPHILS % (AUTO) 0 % (0-10); HEMATOCRIT 21 % (40-54); LYMPHOCYTES # (AUTO) 0.6 10^3/uL (1.0-4.0); LYMPHOCYTES % (AUTO) 8 % (12-44); MEAN CORPUSCULAR HEMOGLOBIN 37 pg (25-34); MEAN CORPUSCULAR HGB CONC 33 g/dL (32-36); MEAN CORPUSCULAR VOLUME 115 fL (80-99); MEAN PLATELET VOLUME 11.1 fL (9.0-12.2); MONOCYTES # (AUTO) 0.4 10^3/uL (0.0-1.0); MONOCYTES % (AUTO) 5 % (0-12); NEUTROPHILS # (AUTO) 6.6 10^3/uL (1.8-7.8); NEUTROPHILS % (AUTO) 86 % (42-75); PLATELET COUNT 122 10^3/uL (130-400); WHITE BLOOD COUNT 7.7 10^3/uL (4.3-11.0)
[2021-10-06 06:46] LABS: HEMOGLOBIN 6.9 g/dL (13.3-17.7)
[2021-10-06] MEDS ORDERED: ASPI-1238 PO (10:24)
--- NOTE | 2021-10-06 10:54 | Consultation - Surgery ---
COREY IBARRA 10/06/21 1054: History of Present Illness History of Present Illness Patient Consulted On(sean/time) 10/06/21 10:47 Date Seen by Provider: Oct 06, 2021 Time Seen by Provider: 11:00 History of Present Illness Patient presented to ER yesterday w/RUQ pain, excessive thirst and slurred speech. Initial w/u revealed a possible primary gastric carcinoma w/ liver mets. He also has ascites. He is not in any acute pain and denies any sweats, chills, nausea or vomiting. He has not been passing much gas and has not had a bowel movement since arriving. He is not having any pain with urination. Allergies and Home Medications Allergies Coded Allergies: No Known Drug Allergies (Unverified , 06/14/20) Patient Home Medication List Aspirin (Aspirin EC) 81 Mg Tablet.dr, 81 MG PO DAILY, (Reported) Entered as Reported by: FREDRICK WILLAMS on 10/06/21 1024 Last Action: Reviewed Past Lbrudnp-Vxpnzg-Wbfdeh Hx Patient Social History Smoking Status: Current Everyday Smoker Type Used: Cigarettes 2nd Hand Smoke Exposure: No Recent Hopitalizations: No Alcohol Use?: No Have you traveled recently?: No Seasonal Allergies Seasonal Allergies: No Surgeries History of Surgeries: Yes (Cataract removal) Surgeries: Eye Surgery Respiratory History of Respiratory Disorde: No Cardiovascular History of Cardiac Disorders: No Neurological History of Neurological Disord: No Genitourinary History of Genitourinary Disor: No Gastrointestinal History of Gastrointestinal Di: No Musculoskeletal History of Musculoskeletal Dis: No Endocrine History of Endocrine Disorders: No HEENT History of HEENT Disorders: No HEENT Disorders: Cataract Cancer History of Cancer: No Psychosocial History of Psychiatric Problem: No Integumentary History of Skin or Integumenta: No Blood Transfusions History of Blood Disorders: No Review of Systems-General Constitutional: No chills, No diaphoresis Respiratory: No cough, No dyspnea on exertion, No short of breath Gastrointestinal: RUQ (improved today) Genitourinary: No dysuria Musculoskeletal: back pain Psychiatric/Neurological: Denies Headache Physical Exam-General Problems Physical Exam Vital Signs Vital Signs - First Documented 10/05/21 11:15 Temp 36.5 Pulse 85 Resp 18 B/P (MAP) 114/66 (82) Pulse Ox 92 O2 Delivery Room Air Capillary Refill : Less Than 3 Seconds General Appearance: no apparent distress HEENT: PERRL/EOMI Neck: non-tender Respiratory: no respiratory distress, no accessory muscle use Cardiovascular: regular rate, rhythm Gastrointestinal: abnormal bowel sounds (decreased) Extremities: non-tender, normal inspection Neurologic/Psychiatric: alert, normal mood/affect, oriented x 3 Skin: normal color Data Review Labs Laboratory Tests 10/05/21 11:26: Glucometer 125H 10/05/21 11:41: White Blood Count 8.8, Red Blood Count 2.01L, Hemoglobin 7.6L, Hematocrit 22L, Mean Corpuscular Volume 109H, Mean Corpuscular Hemoglobin 38H, Mean Corpuscular Hemoglobin Concent 35, Red Cell Distribution Width 20.0H, Platelet Count 142, Mean Platelet Volume 11.0, Immature Granulocyte % (Auto) 1, Neutrophils (%) (Auto) 87H, Lymphocytes (%) (Auto) 6L, Monocytes (%) (Auto) 6, Eosinophils (%) (Auto) 0, Basophils (%) (Auto) 0, Neutrophils # (Auto) 7.7, Lymphocytes # (Auto) 0.5L, Monocytes # (Auto) 0.5, Eosinophils # (Auto) 0.0, Basophils # (Auto) 0.0, Immature Granulocyte # (Auto) 0.1, Neutrophils % (Manual) 86, Lymphocytes % (Manual) 11, Monocytes % (Manual) 3, Eosinophils % (Manual) 0, Basophils % (Manual) 0, Band Neutrophils 0, Polychromasia SLIGHT, Anisocytosis SLIGHT, Acanthocytes SLIGHT, Prothrombin Time 16.5H, INR Comment 1.3, Activated Partial Thromboplast Time 44H, Sodium Level 139, Potassium Level 3.7, Chloride Level 106, Carbon Dioxide Level 22, Anion Gap 11, Blood Urea Nitrogen 36H, Creatinine 1.28, Estimat Glomerular Filtration Rate 61, BUN/Creatinine Ratio 28, Glucose Level 119H, Calcium Level 8.9, Corrected Calcium 9.5, Total Bilirubin 1.4H, Aspartate Amino Transf (AST/SGOT) 148H, Alanine Aminotransferase (ALT/SGPT) 101H , Alkaline Phosphatase 432H, Pro-B-Type Natriuretic Peptide 4607.0H, Total Protein 5.4L, Albumin 3.3, Lipase 265H, Serum Alcohol < 10 10/05/21 13:44: Urine Color BROWNH, Urine Clarity TURBID, Urine pH 5.0, Urine Specific [place] 1.020, Urine Protein TRACEH, Urine Glucose (UA) NEGATIVE, Urine Ketones 1+H, Uri ne Nitrite NEGATIVE, Urine Bilirubin 3+H, Urine Urobilinogen 0.2, Urine Leukocyte Esterase NEGATIVE, Urine RBC (Auto) 3+H, Urine RBC >100H, Urine WBC 0- 2, Urine Squamous Epithelial Cells RARE, Urine Crystals NONE, Urine Bacteria TRACE, Urine Casts NONE, Urine Mucus NEGATIVE, Urine Culture Indicated NO, Urine Opiates Screen NEGATIVE, Urine Oxycodone Screen NEGATIVE, Urine Methadone Screen NEGATIVE, Urine Propoxyphene Screen NEGATIVE, Urine Barbiturates Screen NEGATIVE, Ur Tricyclic Antidepressants Screen NEGATIVE, Urine Phencyclidine Screen NEGATIVE, Urine Amphetamines Screen NEGATIVE, Urine Methamphetamines Screen NEGATIVE, Urine Benzodiazepines Screen NEGATIVE, Urine Cocaine Screen NEGATIVE, Urine Cannabinoids Screen NEGATIVE 10/05/21 17:53: Ammonia 22 10/06/21 06:13: White Blood Count 7.7, Red Blood Count 1.85L, Hemoglobin 6.9*L, Hematocrit 21L, Mean Corpuscular Volume 115H, Mean Corpuscular Hemoglobin 37H, Mean Corpuscular Hemoglobin Concent 33, Red Cell Distribution Width 21.1H, Platelet Count 122L, Mean Platelet Volume 11.1, Immature Granulocyte % (Auto) 1, Neutrophils (%) (Auto) 86H, Lymphocytes (%) (Auto) 8L, Monocytes (%) (Auto) 5, Eosinophils (%) (Auto) 0, Basophils (%) (Auto) 0, Neutrophils # (Auto) 6.6, Lymphocytes # (Auto) 0.6L, Monocytes # (Auto) 0.4, Eosinophils # (Auto) 0.0, Basophils # (Auto) 0.0, Immature Granulocyte # (Auto) 0.1, Percent Immature Platelet Fraction 5.2 Assessment/Plan Assessment/Plan Assessment/Plan Liver masses (possible gastric primary) Ascites - paracentesis w/cytology planned today MORENA PIKE DO 10/06/212010: History of Present Illness History of Present Illness History of Present Illness Consult requested by Dr. Aranda for liver masses. Patient is 66-year-old male present emergency apartment with right upper quadrant abdominal pain. Extremely thirsty. Patient states that nothing was seem to make things better or worse. Patient has not been to a doctor for many years. Not eating well. He has bilateral lower extremity edema. Patient ng of issues difficult. He had a CT scan that demonstrated multiple liver masses and some gastric thickening. There is small amount of ascites. Patient no other complaints at this time. Allergies and Home Medications Allergies Coded Allergies: No Known Drug Allergies (Unverified , 06/14/20) Patient Home Medication List Home Medication List Reviewed: Yes Aspirin (Aspirin EC) 81 Mg Tablet.dr, 81 MG PO DAILY, (Reported) Entered as Reported by: FREDRICK WILLAMS on 10/06/21 1024 Last Action: Reviewed Past Vpcvhyn-Mrtnnk-Foqtqy Hx Reviewed Nursing Assessment Reviewed/Agree w Nursing PMH: Yes Family Medical History Significant Family History: No Pertinent Family Hx Review of Systems-General Constitutional: No chills, No diaphoresis Respiratory: No cough, No dyspnea on exertion, No short of breath Gastrointestinal: RUQ (improved today); No nausea, No vomiting Genitourinary: No decreased output, No discharge, No dysuria Musculoskeletal: No back pain, No joint pain Skin: No change in color, No change in hair/nails Psychiatric/Neurological: Denies Anxiety, Denies Depressed, Denies Emotional Problems, Denies Headache All Other Systems Reviewed Negative Unless Noted: Yes Physical Exam-General Problems Physical Exam General Appearance: no apparent distress, thin (f) HEENT: PERRL/EOMI, normal ENT inspection Neck: non-tender Respiratory: chest non-tender, no respiratory distress, no accessory muscle use Cardiovascular: regular rate, rhythm, no JVD Gastrointestinal: non tender, soft Rectal: deferred Back: no CVA tenderness, no vertebral tenderness Extremities: non-tender, normal inspection Neurologic/Psychiatric: alert, normal mood/affect, oriented x 3 Skin: normal color, warm/dry Lymphatic: no adenopathy Assessment/Plan Assessment/Plan Assessment/Plan Liver masses (possible gastric primary) -may need liver biopsy Gastric thickening, gastritis vs primary Ascites - small volume on CT will get u/s to see if can get fluid for cytology with paracentesis -u/s performed not good window for fluid -will need liver biopsy, will arrange with radiology on SATURDAY, Dr. Calvin notified. Supervisory-Addendum Brief Verification & Attestation Participated in pt care: history, MDM, physical Personally performed: exam, history, MDM, supervision of care Care discussed with: Medical Student Procedures: n/a Results interpretation: Verified all documentation Verification and Attestation of Medical Student E/M Service A medical student performed and documented this service in my presence. I reviewed and verified all information documented by the medical student and made modifications to such information, when appropriate. I personally performed the physical exam and medical decision making. Morena Pike, Oct 06, 2021,20:16 COREY IBARRA Oct 06, 2021 10:54 MORENA PIKE DO Oct 06, 2021 20:11
[2021-10-06] MEDS ORDERED: NS IV 500 ML 500 ML IV SCH ×2 (11:15)
[2021-10-06] MEDS ORDERED: ACETAMINOPHEN 325 MG TABLET PO PRN (11:45)
[2021-10-06] MEDS ORDERED: ALPRAZolam 0.25 MG (XANAX) TAB PO PRN (11:45)
[2021-10-06] MEDS ORDERED: MELATONIN 3 MG TABLET PO PRN (11:45)
[2021-10-06] MEDS ORDERED: ONDANSETRON 4 MG (ZOFRAN) ORAL DISSOLVE TAB PO PRN (11:45)
[2021-10-06] MEDS ORDERED: guaiFENesin/CODEINE (ROBITUSSIN AC) 10ML UDC PO PRN (11:45)
[2021-10-06] MEDS ORDERED: diphenhydrAMINE 25 MG TAB (BENADRYL) PO PRN (11:45)
[2021-10-06] MEDS ORDERED: CALCIUM CARBONATE 500 MG (TUMS) TAB.CHEW PO PRN (11:45)
[2021-10-06] MEDS ORDERED: LOPERAMIDE 2 MG (IMODIUM) TABLET PO PRN (11:45)
[2021-10-06] MEDS ORDERED: ONDANSETRON 4 MG/2 ML (SDV) Z0FRAN IVP PRN (11:45)
[2021-10-06] MEDS ORDERED: DOCUSATE SODIUM 100 MG (COLACE) CAP PO PRN (11:45)
[2021-10-06] MEDS: PANTOPRAZOLE 40 MG (PROTONIX) VIAL IV SCH (12:11)
[2021-10-06] MEDS ORDERED: FUROSEMIDE 40 MG/4 ML INJ (LASIX) IVP ONE (13:00)
--- NOTE | 2021-10-06 13:12 | History & Physical-Hospitalist ---
ZACARIAS MERCADO 10/06/21 1312: History of Present Illness HPI/Chief Complaint Ravinder Kyle is a 66y/o M w/ a PMH of cataracts who presented to the ER yesterday due to excessive thirst and RUQ pain. Pt reports that he has been excessively thirsty for weeks and has been urinating often. Says that he had been drinking a lot of fluids but nothing had seemed to help w/ his thirst. Denies any previous diagnosis of diabetes. The RUQ pain has been present for a couple of months. The RUQ pain waxes and wanes. Denies that it is a severe pain. He states that he has never had an episode like this in the past. Currently he does not have any pain. Source: patient Exam Limitations: no limitations Date Seen 10/06/21 Attending Physician [facility] PCP Admitting Physician: Rosana Alfaro MD Attending Physician: Palak Chavarria DO Referring Physician Date of Admission Oct 05, 2021 at 17:22 Home Medications & Allergies Home Medications Reviewed patient Home Medication Reconciliation performed by pharmacy medication reconciliations senior pharmacy technician and/or nursing. Patients Allergies have been reviewed. Allergies Allergies Coded Allergies No Known Drug Allergies (Unverified06/14/20) Past Kllognq-Tusltp-Ocifnd Hx Patient Social History Tobacco Use?: Yes Tobacco type used: Cigarettes Smoking Status: Current Everyday Smoker Use of E-Cig and/or Vaping dev: No Substance use?: No Alcohol Use?: No Pt feels they are or have been: No Seasonal Allergies Seasonal Allergies: No Current Status Advance Directives: No Communicates: Verbally Primary Language: Pashto Preferred Spoken Language: Pashto Is interpretation needed?: No Implanted or Applied Medical D: None Past Medical History Surgeries: Eye Surgery Cataract Blood Disorders: No Family Medical History Cancer (father) Review of Systems Constitutional: No chills, No fever EENTM: No hearing loss, No blurred vision, No eye pain Respiratory: No cough, No short of breath Cardiovascular: No chest pain, No palpitations Gastrointestinal: abdominal pain (RUQ), jaundice; No nausea, No vomiting Genitourinary: No dysuria; frequency; No hematuria Musculoskeletal: No back pain, No joint pain Psychiatric/Neurological: Denies Headache, Denies Numbness Physical Exam Physical Exam Vital Signs Vital Signs - First Documented 10/05/21 11:15 Temp 36.5 Pulse 85 Resp 18 B/P (MAP) 114/66 (82) Pulse Ox 92 O2 Delivery Room Air Capillary Refill : Less Than 3 Seconds Height, Weight, BMI Height: '" Weight: lbs. oz. kg; 23.93 BMI Method: General Appearance: No Apparent Distress, Cachetic HEENT: PERRL/EOMI; No Photophobia; Scleral Icterus (L), Scleral Icterus (R) Respiratory: Lungs Clear, Normal Breath Sounds, No Respiratory Distress Cardiovascular: Regular Rate, Rhythm, No Murmur, Normal Peripheral Pulses Gastrointestinal: Hepatomegaly, Hernia (umbilical) Extremity: Pedal Edema (3+/4) Neurologic/Psychiatric: Alert, Normal Mood/Affect Skin: Jaundice Lymphatic: No Adenopathy Results Results/Procedures Labs Laboratory Tests 10/05/21 11:41 10/06/21 06:13 Patient resulted labs reviewed. Assessment/Plan Admission Diagnosis Liver masses Ascites Elevated LFTs Acute heart failure Anemia Assessment and Plan Liver masses Ascites Elevated LFTs -CT and CTA of abomen/pelvis showed, according to radiology Extensive liver masses with the largest showing internal areas of hemorrhage. Findings are most suggestive of metastatic disease. Gastric wall thickening with mucosal hyperenhancement and submucosal edema favored to represent gastritis but could potentially represent a primary gastric malignancy. Moderate T10 compression fracture -consult gen surgery -AST-148, ALT-101, Alk Phos-422, likely due to masses -continue to monitor Acute heart failure -BNP of 4607 -echo ordered -hold IV fluids -consult cardiology Anemia -Hgb of 6.9 -1unit of pRBC ordered -continue to monitor Moved down to 4th floor GI prophylaxis- protonix DVT prophylaxis- SCDs Code status- full code PALAK CHAVARRIA DO 10/06/212043: History of Present Illness Source: patient Exam Limitations: no limitations Time Seen by a Provider: 11:30 Past Ggosvwc-[place] Hx Patient Social History Marrital Status: single Employed/Student: retired Tobacco type used: Cigarettes Smoking Status: Current Everyday Smoker Review of Systems Constitutional: see HPI Physical Exam Physical Exam General Appearance: No Apparent Distress, Chronically ill, Cachetic Respiratory: Lungs Clear, Normal Breath Sounds Cardiovascular: Regular Rate, Rhythm Assessment/Plan Admission Diagnosis Assessment: 1. Abdominal mass is consistent with neoplastic with wide spread metastasis 2. Ascites 3. 3+ pitting edema 4. Severe anemia requiring transfusion Admission Status: Inpatient Order (span 2 midnights) Reason for Inpatient Admission: abd masses Supervisory-Addendum Brief Verification & Attestation Participated in pt care: history, MDM, physical Personally performed: exam, history, MDM, supervision of care Care discussed with: Medical Student Procedures: n/a Results interpretation: Verified all documentation Verification and Attestation of Medical Student E/M Service A medical student performed and documented this service in my presence. I reviewed and verified all information documented by the medical student and made modifications to such information, when appropriate. I personally performed the physical exam and medical decision making. Palak Chavarria, Oct 06, 2021,20:44 ZACARIAS MERCADO Oct 06, 2021 13:12 PALAK CHAVARRIA DO Oct 06, 2021 20:44
--- NOTE | 2021-10-06 13:27 | Diagnostic Imaging Report ---
PROCEDURE: US Abdomen, limited. TECHNIQUE: Multiple realtime grayscale images were obtained over the abdomen in various projections. INDICATION: Liver mass. COMPARISON: CT abdomen and pelvis from prior day. FINDINGS: Marked heterogeneity of the liver is present with multiple masses present. Again, the largest mass is in the left hepatic lobe and was better evaluated on recent CT. This dominant mass measures up to 12 cm. The main portal vein is patent and has normal direction of flow. Gallbladder is partially contracted and compressed by the masses. The right kidney is normal in appearance. Pancreas is obscured by overlying bowel gas. There is a small amount of simple ascites present throughout the abdomen The largest pocket is in the right lower quadrant near midline. IMPRESSION: 1. Small volume of ascites has the largest pocket in the right lower quadrant. 2. Markedly abnormal appearance of the liver with multiple masses present that are likely metastatic in nature. Dictated by: Dictated on workstation # [id number]
[2021-10-06] MEDS ORDERED: NS IV 1000 ML 1,000 ML ONE (15:11)
--- NOTE | 2021-10-06 15:29 | Diagnostic Imaging Report ---
INDICATION: Shortness of breath. EXAMINATION: PA and lateral chest. FINDINGS: Heart size is normal. There is some basilar atelectasis and small right pleural effusion. IMPRESSION: Small right pleural effusion with some right basilar atelectasis. Dictated by: Dictated on workstation # [id number]
--- NOTE | 2021-10-06 16:20 | Consultation-Cardiology ---
HPI-Cardiology Cardiology Consultation: Date of Consultation 10/06/21 Date of Admission 10/05/21 Attending Physician [facility] [place] Admitting Physician Admitting Physician: Rosana Alfaro MD Attending Physician: Palak Aranda DO Consulting Physician ROYCE ENNIS JR, MD HPI: Time Seen by a Provider: 17:19 Chief Complaint: REASON FOR CONSULTATION: Elevated BNP level. I had the pleasure of seeing Ravinder on the medical/surgical unit at [facility] in [place], [place] today. He has not seen a doctor in many years. He states that over the past few months he has noticed bilateral lower extremity edema. He did not seek medical attention for this. He does not really do much activity at home so he states he does not know if he has been feeling short of breath. He has had slightly poor appetite and reports he has not been eating as well as he did in the past. He felt as though he may be getting dehydrated so he went to the emergency room in [place]. He was found to have marked metabolic abnormalities on his blood work and underwent a CT scan of the abdomen and pelvis and was found to have liver masses. He also had an elevated BNP level and because of this, a cardiology consultation was requested. He denies chest discomfort, paroxysmal nocturnal dyspnea, orthopnea, or palpitations. He has had some lightheaded spells but denies any syncope. He has no previously known history of cardiac disease. He denies nausea, vomiting, or diarrhea. He does not believe he has ever had a colonoscopy. Certain portions of this document may have been dictated utilizing voice recognition technology. Inherent to this technology, typographical and grammatical errors may exist. As much as I am diligent to identify and correct these mistakes, some errors may remain in the document. Review of Systems-Cardiology Review of Systems Other comments Review of 10 organ systems is as per the history of present illness, otherwise negative. JNT-Urdzju-Drbcfx Hx Patient Social History Smoking Status: Current Everyday Smoker 2nd Hand Smoke Exposure: No Have you traveled recently?: No Alcohol Use?: No Pt feels they are or have been: No Tobacco type used: Cigarettes Past Medical History PMH As described under Assessment. Family Medical History Family Medical History: His mother had heart disease, diabetes and cancer. Allergies and Home Medications Allergies Coded Allergies: No Known Drug Allergies (Unverified , 06/14/20) Patient Home Medication List Home Medication List Reviewed: Yes Aspirin (Aspirin EC) 81 Mg Tablet., 81 MG PO DAILY, (Reported) Entered as Reported by: FREDRICK WILLAMS on 10/06/21 1024 Last Action: Reviewed Exam Vital Signs Vital Signs Date Time Temp Pulse Resp B/P (MAP) Pulse Ox O2 Delivery O2 Flow Rate FiO2 10/06/21 15:35 36.6 70 20 108/62 92 Nasal Cannula 4.00 Physical Exam General: Alert but speaking very slowly. No acute distress. Well nourished and appears stated age. He appears chronically ill. Eye: Extraocular movements are intact. Conjunctivae are clear. There are no xanthelasma. HENT: Normocephalic. Atraumatic. Carotid pulsations 2/2 without bruits. Neck: Jugular venous pressure does not appear elevated. No thyromegaly appreciated. Respiratory: Lungs are clear to auscultation. Respirations are non-labored. Breath sounds are equal. Symmetrical chest wall expansion. Cardiovascular: Normal rate. Regular rhythm. No murmur. No gallop. Point of maximal impulse is not appear displaced. Good pulses equal in all extremities. 3+ bilateral pretibial edema. Gastrointestinal: Soft. Normal bowel sounds. Skin: Skin turgor is normal. There is no pallor. Musculoskeletal: No kyphosis or scoliosis appreciated. Neurologic: Alert and oriented to person, place, time. Cranial nerves 3-12 appear grossly intact. The patient has good motor tone strength in the upper and lower extremities bilaterally. Psychiatric: Cooperative. Appropriate mood & affect. Labs Laboratory Tests Test 10/05/21 17:53 10/06/21 06:13 Range/Units Ammonia 22 11-32 UMOL/L White Blood Count 7.7 4.3-11.0 10^3/uL Red Blood Count 1.85 L 4.30-5.52 10^6/uL Hemoglobin 6.9 *L 13.3-17.7 g/dL Hematocrit 21 L 40-54 % Mean Corpuscular Volume 115 H 80-99 fL Mean Corpuscular Hemoglobin 37 H 25-34 pg Mean Corpuscular Hemoglobin Concent 33 32-36 g/dL Red Cell Distribution Width 21.1 H 10.0-14.5 % Platelet Count 122 L 130-400 10^3/uL Mean Platelet Volume 11.1 9.0-12.2 fL Immature Granulocyte % (Auto) 1 % Neutrophils (%) (Auto) 86 H 42-75 % Lymphocytes (%) (Auto) 8 L 12-44 % Monocytes (%) (Auto) 5 0-12 % Eosinophils (%) (Auto) 0 0-10 % Basophils (%) (Auto) 0 0-10 % Neutrophils # (Auto) 6.6 1.8-7.8 10^3/uL Lymphocytes # (Auto) 0.6 L 1.0-4.0 10^3/uL Monocytes # (Auto) 0.4 0.0-1.0 10^3/uL Eosinophils # (Auto) 0.0 0.0-0.3 10^3/uL Basophils # (Auto) 0.0 0.0-0.1 10^3/uL Immature Granulocyte # (Auto) 0.1 0.0-0.1 10^3/uL Percent Immature Platelet Fraction 5.2 0.0-7.6 % Radiology ECHOCARDIOGRAM (10/06/2021): 1. This is a technically difficult study due to poor image quality secondary to patient's body habitus. 2. Left ventricle: The cavity size is normal. There is severe concentric hypertrophy. Systolic function is normal. The estimated ejection fraction is 60- 65%. Regional wall motion abnormalities cannot be excluded due to poor endocardial definition. Doppler parameters are consistent with abnormal left ventricular relaxation (grade 1 diastolic dysfunction). 3. Aortic valve: There is mild aortic valve sclerosis. 4. Pulmonary arteries: The estimated pulmonary artery systolic pressure is 28 mmHg assuming a right atrial pressure of 5 mmHg. Diagnosis/Problems Diagnosis/Problems (1) Elevated brain natriuretic peptide (BNP) level Assessment & Plan: His echocardiogram did not show any significant structural heart disease. He seems to have total body volume overload but has low protein and albumin levels. I suspect he is just third spacing due to hypotonic state. I do not think he is in heart failure. I will start him on intravenous diuretic to help remove some fluid. We will need to watch his renal function closely. (2) Acute kidney injury Assessment & Plan: His creatinine level is slightly elevated but was similar 1 year ago. We will need to watch his renal function closely with the diuretic. (3) Pleural effusion Assessment & Plan: I suspect this may be related to the hepatic insufficiency. A neoplastic effusion would also be in the differential diagnosis. As with his peripheral edema, I do not think this is due to heart failure. (4) Bilateral leg edema Status: Acute Assessment & Plan: I suspect this is multifactorial in etiology but I do not believe heart failure is causing his peripheral edema. As above, I will start him on diuretic. (5) Cigarette smoker Assessment & Plan: He needs to quit smoking. He was counseled in this regard. ROYCE ENNIS JR, MD Oct 06, 2021 16:20
[2021-10-06 20:24] LABS: HEMOGLOBIN 9.1 g/dL (13.3-17.7)
[2021-10-06] MEDS: SENNA W/DOCUSATE (SENOKOT S) TABLET PO SCH (20:44)
[2021-10-07 04:09] VITALS: BP 108/67
[2021-10-07 05:46] LABS: BASOPHILS % (AUTO) 0 % (0-10); EOSINOPHILS % (AUTO) 0 % (0-10); HEMATOCRIT 29 % (40-54); HEMOGLOBIN 9.5 g/dL (13.3-17.7); LYMPHOCYTES # (AUTO) 0.7 10^3/uL (1.0-4.0); LYMPHOCYTES % (AUTO) 8 % (12-44); MEAN CORPUSCULAR HEMOGLOBIN 35 pg (25-34); MEAN CORPUSCULAR HGB CONC 33 g/dL (32-36); MEAN CORPUSCULAR VOLUME 106 fL (80-99); MEAN PLATELET VOLUME 11.3 fL (9.0-12.2); MONOCYTES # (AUTO) 0.4 10^3/uL (0.0-1.0); MONOCYTES % (AUTO) 5 % (0-12); NEUTROPHILS # (AUTO) 7.5 10^3/uL (1.8-7.8); NEUTROPHILS % (AUTO) 85 % (42-75); PLATELET COUNT 143 10^3/uL (130-400); WHITE BLOOD COUNT 8.8 10^3/uL (4.3-11.0)
[2021-10-07 06:01] LABS: ALBUMIN 2.5 GM/DL (3.2-4.5); POTASSIUM 3.5 MMOL/L (3.6-5.0)
[2021-10-07 06:02] LABS: CALCIUM 7.6 MG/DL (8.5-10.1)
[2021-10-07 06:03] LABS: TOTAL PROTEIN 4.6 GM/DL (6.4-8.2)
[2021-10-07 06:05] LABS: BILIRUBIN,TOTAL 1.7 MG/DL (0.1-1.0)
[2021-10-07 06:07] LABS: CREATININE SERUM 1.17 MG/DL (0.60-1.30)
--- NOTE | 2021-10-07 06:49 | Progress Note - Hospitalist ---
Subjective HPI/CC On Admission Date Seen by Provider: Oct 07, 2021 Time Seen by Provider: 10:00 Subjective/Events-last exam Patient wants to go home Biopsy will be done on Saturday by Dr. Calvin in interventional radiology Labs stable Review of Systems General: Fatigue, Malaise Neurological: Incoordination Objective Exam Vital Signs Vital Signs Date Time Temp Pulse Resp B/P (MAP) Pulse Ox O2 Delivery O2 Flow Rate FiO2 10/07/21 16:07 36.3 73 17 99/62 (74) Nasal Cannula 3.00 10/07/21 11:51 92 Capillary Refill : Less Than 3 Seconds General Appearance: No Apparent Distress, WD/WN, Chronically ill, Cachetic, Thin Respiratory: Lungs Clear, Normal Breath Sounds Cardiovascular: Regular Rate, Rhythm Neurologic/Psychiatric: Alert, Oriented x3, Depressed Affect Results/Procedures Lab Laboratory Tests 10/06/21 20:18 10/07/21 05:00 Patient resulted labs reviewed. Assessment/Plan Assessment and Plan Assess & Plan/Chief Complaint Liver masses Ascites Elevated LFTs -CT and CTA of abomen/pelvis showed, according to radiology Extensive liver masses with the largest showing internal areas of hemorrhage. Findings are most suggestive of metastatic disease. Gastric wall thickening with mucosal hyperenhancement and submucosal edema favored to represent gastritis but could potentially represent a primary gastric malignancy. Moderate T10 compression fracture -consult gen surgery -AST-148, ALT-101, Alk Phos-422, likely due to masses -continue to monitor Acute heart failure -BNP of 4607 -echo ordered -hold IV fluids -consult cardiology Anemia -Hgb of 6.9 -1unit of pRBC transfused yesterday -continue to monitor Moved down to 4th floor GI prophylaxis- protonix DVT prophylaxis- SCDs Code status- full code Interventional radiology biopsy on Saturday DAVID CHAVARRIA DO Oct 07, 2021 06:49
[2021-10-07 07:44] VITALS: BP 111/69
[2021-10-07] MEDS: FUROSEMIDE 40 MG/4 ML INJ (LASIX) IVP SCH (09:03)
[2021-10-07] MEDS: PANTOPRAZOLE 40 MG (PROTONIX) VIAL IV SCH (09:03)
[2021-10-07] MEDS: SENNA W/DOCUSATE (SENOKOT S) TABLET PO SCH ×2 (09:03→19:29)
--- NOTE | 2021-10-07 10:16 | Progress Note - Surgery ---
Subjective Date Seen by a Provider: Oct 07, 2021 Time Seen by a Provider: 10:11 Subjective/Events-last exam No pain. Sitting in chair. Wanting to get answers of whats going on. Denies n/v fever sweats chills shortness of breath or chest pain at this time. NPO currently. Objective Exam Vital Signs Date Time Temp Pulse Resp B/P (MAP) Pulse Ox O2 Delivery O2 Flow Rate FiO2 10/07/21 07:44 36.7 66 18 111/69 (83) 94 Nasal Cannula 3.00 10/07/21 04:09 36.3 67 16 108/67 (81) 94 Nasal Cannula 3.00 10/06/21 23:47 36.6 66 16 110/64 (79) 90 Nasal Cannula 3.00 10/06/21 20:45 Nasal Cannula 4.00 10/06/21 19:30 36.0 73 94/56 (69) 90 Nasal Cannula 3.00 10/06/21 17:46 36.5 70 20 111/67 90 Nasal Cannula 4.00 10/06/21 15:35 36.6 70 20 108/62 92 Nasal Cannula 4.00 10/06/21 15:18 36.6 74 20 106/66 90 Nasal Cannula 4.00 10/06/21 15:16 36.9 75 16 109/64 (79) 94 Nasal Cannula 3.00 10/06/21 12:00 36.7 74 18 107/66 (80) 98 Nasal Cannula 3.00 I & O 10/07/21 07:00 Intake Total 200 ml Balance 200 ml Capillary Refill : Less Than 3 Seconds General Appearance: No Apparent Distress, Chronically ill HEENT: PERRL/EOMI; No Photophobia; Scleral Icterus (L), Scleral Icterus (R) Neck: Full Range of Motion, Normal Inspection, Non Tender, Supple Respiratory: Chest Non Tender, No Accessory Muscle Use, No Respiratory Distress Cardiovascular: Regular Rate, Rhythm, No JVD Gastrointestinal: non tender, soft Extremity: Pedal Edema (3+/4) Neurologic/Psychiatric: Alert, Normal Mood/Affect Skin: Warm/Dry, Jaundice Lymphatic: No Adenopathy Results Lab Laboratory Tests 10/06/21 20:18: Hemoglobin 9.1#L, Hematocrit 27L 10/07/21 05:00: Hemoglobin 9.5L, Hematocrit 29L, White Blood Count 8.8, Red Blood Count 2.71L, Mean Corpuscular Volume 106H, Mean Corpuscular Hemoglobin 35H, Mean Corpuscular Hemoglobin Concent 33, Red Cell Distribution Width 25.0H, Platelet Count 143, Mean Platelet Volume 11.3, Immature Granulocyte % (Auto) 1, Neutrophils (%) (Auto) 85H, Lymphocytes (%) (Auto) 8L, Monocytes (%) (Auto) 5, Eosinophils (%) (Auto) 0, Basophils (%) (Auto) 0, Neutrophils # (Auto) 7.5, Lymphocytes # (Auto) 0.7L, Monocytes # (Auto) 0.4, Eosinophils # (Auto) 0.0, Basophils # (Auto) 0.0, Immature Granulocyte # (Auto) 0.1, Sodium Level 140, Potassium Level 3.5L, Chloride Level 108H, Carbon Dioxide Level 25, Anion Gap 7, Blood Urea Nitrogen 25H, Creatinine 1.17, Estimat Glomerular Filtration Rate 68, BUN/Creatinine Ratio 21, Glucose Level 69L, Calcium Level 7.6L, Corrected Calcium 8.8, Total Bilirubin 1.7H, Aspartate Amino Transf (AST/SGOT) 191H, Alanine Aminotransferase (ALT/SGPT) 126H, Alkaline Phosphatase 395H, Total Protein 4.6L, Albumin 2.5L Assessment/Plan Assessment/Plan Assessment/Plan Liver masses (possible gastric primary) -liver biopsy saturday Gastric thickening, gastritis vs primary Anemia- monitor Ascites - small volume not able to obtain by paracentesis -will need liver biopsy, will arrange with radiology on SATURDAY, Dr. Calvin notified. MORENA PIKE DO Oct 07, 2021 10:16
[2021-10-07 11:51] VITALS: BP 100/63
--- NOTE | 2021-10-07 11:51 | Cardiology Progress Note ---
Progress Note-Cardiology Events since last exam Date Seen by Provider: Oct 07, 2021 Time Seen by Provider: 11:47 Events since last exam I am following him due to peripheral edema that is likely noncardiac. He wants to know if he can go home and come back later for a liver biopsy. He denies chest pain, dyspnea, palpitations, or syncope. His ankle edema is improving after getting intravenous furosemide. Certain portions of this document may have been dictated utilizing voice recognition technology. Inherent to this technology, typographical and grammatical errors may exist. As much as I am diligent to identify and correct these mistakes, some errors may remain in the document. Vitals Last set of Vitals Signs Vital Signs 10/07/21 10/07/21 07:44 11:27 Temp 36.7 Pulse 66 Resp 18 B/P (MAP) 111/69 (83) Pulse Ox 94 O2 Delivery Nasal Cannula O2 Flow Rate 3.00 Labs Labs Laboratory Tests 10/06/21 20:18 10/07/21 05:00 Exam Vital Signs Vital Signs Date Time Temp Pulse Resp B/P (MAP) Pulse Ox O2 Delivery O2 Flow Rate FiO2 10/07/21 11:27 94 Nasal Cannula 3.00 10/07/21 07:44 36.7 66 18 111/69 (83) Physical Exam General: Alert. No acute distress. Eye: No xanthelasma. HENT: Normocephalic. Neck: Jugular venous pressure does not appear elevated. Respiratory: Lungs have some scattered wheezes. Respirations are non-labored. Breath sounds are equal. Symmetrical chest wall expansion. Cardiovascular: Normal rate. Regular rhythm. No murmur. No gallop. 1-2+ bilateral pretibial edema, improving. Gastrointestinal: Soft. Normal bowel sounds. Skin: Warm. Dry. Neurologic: Alert and oriented to person, place, time. Cranial nerves 3-11 grossly intact. Psychiatric: Cooperative. Appropriate mood & affect. Labs Laboratory Tests Test 10/06/21 20:18 10/07/21 05:00 Range/Units Hemoglobin 9.1 #L 9.5 L 13.3-17.7 g/dL Hematocrit 27 L 29 L 40-54 % White Blood Count 8.8 4.3-11.0 10^3/uL Red Blood Count 2.71 L 4.30-5.52 10^6/uL Mean Corpuscular Volume 106 H 80-99 fL Mean Corpuscular Hemoglobin 35 H 25-34 pg Mean Corpuscular Hemoglobin Concent 33 32-36 g/dL Red Cell Distribution Width 25.0 H 10.0-14.5 % Platelet Count 143 130-400 10^3/uL Mean Platelet Volume 11.3 9.0-12.2 fL Immature Granulocyte % (Auto) 1 % Neutrophils (%) (Auto) 85 H 42-75 % Lymphocytes (%) (Auto) 8 L 12-44 % Monocytes (%) (Auto) 5 0-12 % Eosinophils (%) (Auto) 0 0-10 % Basophils (%) (Auto) 0 0-10 % Neutrophils # (Auto) 7.5 1.8-7.8 10^3/uL Lymphocytes # (Auto) 0.7 L 1.0-4.0 10^3/uL Monocytes # (Auto) 0.4 0.0-1.0 10^3/uL Eosinophils # (Auto) 0.0 0.0-0.3 10^3/uL Basophils # (Auto) 0.0 0.0-0.1 10^3/uL Immature Granulocyte # (Auto) 0.1 0.0-0.1 10^3/uL Sodium Level 140 135-145 MMOL/L Potassium Level 3.5 L 3.6-5.0 MMOL/L Chloride Level 108 H 98-107 MMOL/L Carbon Dioxide Level 25 21-32 MMOL/L Anion Gap 7 5-14 MMOL/L Blood Urea Nitrogen 25 H 7-18 MG/DL Creatinine 1.17 0.60-1.30 MG/DL Estimat Glomerular Filtration Rate 68 BUN/Creatinine Ratio 21 Glucose Level 69 L 70-105 MG/DL Calcium Level 7.6 L 8.5-10.1 MG/DL Corrected Calcium 8.8 8.5-10.1 MG/DL Total Bilirubin 1.7 H 0.1-1.0 MG/DL Aspartate Amino Transf (AST/SGOT) 191 H 5-34 U/L Alanine Aminotransferase (ALT/SGPT) 126 H 0-55 U/L Alkaline Phosphatase 395 H 40-136 U/L Total Protein 4.6 L 6.4-8.2 GM/DL Albumin 2.5 L 3.2-4.5 GM/DL Diagnosis/Problems Diagnosis/Problems (1) Elevated brain natriuretic peptide (BNP) level Assessment & Plan: His echocardiogram did not show any significant structural heart disease. He seems to have total body volume overload but has low protein and albumin levels. I suspect he is just third spacing due to hypotonic state. I do not think he is in heart failure. We can continue intravenous furosemide for the time being. We will need to watch his renal function closely. (2) Acute kidney injury Assessment & Plan: His creatinine level is slightly elevated but was similar 1 year ago. We will need to watch his renal function closely with the diuretic. (3) Bilateral leg edema Status: Acute Assessment & Plan: I suspect this is multifactorial in etiology but I do not believe heart failure is causing his peripheral edema. As above, continue diuretic. (4) Pleural effusion Assessment & Plan: I suspect this may be related to the hepatic insufficiency. A neoplastic effusion would also be in the differential diagnosis. As with his peripheral edema, I do not think this is due to heart failure. (5) Cigarette smoker Assessment & Plan: He needs to quit smoking. He was counseled in this regard. His cigarette smoking certainly puts him at increased risk for having multiple different cancers. (6) Liver masses Status: Acute Assessment & Plan: He is awaiting liver biopsy on Saturday. I encouraged him to stay in the hospital and continue with intravenous diuresis so that we can obtain a liver biopsy Saturday and help expedite getting a diagnosis for him. ROYCE ENNIS JR, MD Oct 07, 2021 11:51
--- NOTE | 2021-10-07 13:46 | Physical Therapy Evaluation ---
PT Evaluation-General Medical Diagnosis Admission Date Oct 05, 2021 at 17:22 Medical Diagnosis: liver masses, ascities Onset Date: Oct 05, 2021 Therapy Diagnosis Therapy Diagnosis: impaired mobility, strength, endurane, balance Precautions Precautions/Isolations: Fall Prevention, Standard Precautions Referral Physician: Palak Aranda DO Reason for Referral: Evaluation/Treatment Medical History Additional Medical History eye surgery, cataracts Social History Home: Single Level Current Living Status: Other Family Entry Into Home: Stairs With Railing Patient states 3-4 steps to enter the home Prior Prior Level of Function SCALE: Activities may be completed with or without assistive devices. 0-Jxhrvdudyc-rizaahj completes the activity by him/herself with no assistance from a helper. 5-Set-up or Clean-up Assistance-helper sets up or cleans up; patient completes activity. [place] assists only prior to or following the activity. 4-Supervision or Touching Assistance-helper provides verbal cues and/or touching/steadying and/or contact guard assistance as patient completes activity. Assistance may be provided throughout the activity or intermittently. 3-Partial/Moderate Assistance-helper does LESS THAN HALF the effort. [place] lifts, holds or supports trunk or limbs, but provides less than half the effort. 2-Substantial/Maximal Assistance-helper does MORE THAN HALF the effort. [place] lifts or holds trunk or limbs and provides more than half the effort. 3-Gqgshmwnr-oydzka does ALL the effort. Patient does none of the effort to complete the activity. Or, the assistance of 2 or more helpers is required for the patient to complete the activity. If activity was not attempted, code reason: 7-Patient Refused. 9-Not Applicable-not attempted and the patient did not perform the activity before the current illness, exacerbation or injury. 10-Not Attempted due to Environmental Limitations-(lack of equipment, weather restraints, etc.). 88-Not Attempted due to Medical Conditions or Safety Concerns. Bed Mobility: 6 Transfers (B,C,W/C): 6 Gait: 6 Stairs: 6 Indoor Mobility (Ambulation): Independent Stairs: Independent Prior Devices Use: Walker PT Evaluation-Current Subjective Patient in recliner pre tx, agrees to PT, has no complaints of pain at rest. Pt/Family Goals to be independent at home Objective Patient Orientation: Person, Place, Situation Attachments: Oxygen ROM/Strength ROM Lower Extremities WNL Strength Lower Extremities grossly 4/5 BLE Sensory Hearing: Impaired Sensation Right Lower Extremit: Impaired Sensation Left Lower Extremity: Impaired Transfers Sit to Stand (QC): 3 Chair/Yjq-rq-Fvxbn Xfer(QC): 3 Gait Does the Patient Walk?: Yes Mode of Locomotion: Walk Anticipated Mode of Locomotion: Walk Walk 10 feet (QC): 3 Distance: 30' Gait Assistive Device: FWW Comments/Gait Description slow ambulation, very unsteady, min assist from therapist to keep balance Balance Sitting Static: Normal Sitting Dynamic: Normal Standing Static: Poor Standing Dynamic: Poor Treatment BLE seated exercises x20 (AP, LAQ) Assessment/Needs Patient in recliner post tx with nurse call, phone, tray, all needs met. Patent instructed to call nurse if he needs to get out of the recliner. Patient has impaired mobility, strength, endurance, balance. Needs min assist to maintain balance during ambulation. Rehab Potential: Fair PT Nursing Home Goals Non Profit Director Goals PT Nursing Home Goals Time Frame: Oct 14, 2021 Roll Left & Right (QC): 4 (SBA) Sit to Lying (QC): 4 (SBA) Lying-Sitting on Side/Bed(QC): 4 (SBA) Sit to Stand (QC): 4 (CGA) Chair/Hmf-zr-Pacyt Xfer(QC): 4 (CGA) Walk 10 feet (QC): 4 (CGA) Walk 50ft with 2 Turns (QC): 4 (CGA) PT Plan Problem List Problem List: Activity Tolerance, Functional Strength, Safety, Balance, Gait, Transfer, Bed Mobility, ROM Treatment/Plan Treatment Plan: Continue Plan of Care Treatment Plan: Bed Mobility, Education, Functional Activity [place], Functional Strength, Gait, Safety, Therapeutic Exercise, Transfers Treatment Duration: Oct 14, 2021 Frequency: 6 times per week Estimated Hrs Per Day: .25 hour per day Patient and/or Family Agrees t: Yes Safety Risks/Education Patient Education: Gait Training, Transfer Techniques, Correct Positioning, Safety Issues Teaching Recipient: Patient Teaching Methods: Demonstration, Discussion Response to Teaching: Reinforcement Needed Discharge Recommendations Plan Patient will perform bed mobility and transfer training, balance and endurance training, functional strengthening, stair training, gait training, and education, to improve functional mobility and independence at home. Therapy Discharge Recommendati: Other, See Comments (NH) Time/GCodes Time In: 1305 Time Out: 1318 Total Billed Treatment Time: 13 Total Billed Treatment 1 visit CARITO AYALA PT Oct 07, 2021 13:46
[2021-10-07 16:07] VITALS: BP 99/62
[2021-10-07 19:25] VITALS: BP 110/63
[2021-10-07 23:48] VITALS: BP 100/58
[2021-10-08 04:53] VITALS: BP 106/60
[2021-10-08 05:53] LABS: BASOPHILS % (AUTO) 0 % (0-10); EOSINOPHILS % (AUTO) 1 % (0-10); HEMATOCRIT 28 % (40-54); HEMOGLOBIN 9.4 g/dL (13.3-17.7); LYMPHOCYTES # (AUTO) 0.6 10^3/uL (1.0-4.0); LYMPHOCYTES % (AUTO) 7 % (12-44); MEAN CORPUSCULAR HEMOGLOBIN 36 pg (25-34); MEAN CORPUSCULAR HGB CONC 34 g/dL (32-36); MEAN CORPUSCULAR VOLUME 105 fL (80-99); MONOCYTES # (AUTO) 0.4 10^3/uL (0.0-1.0); MONOCYTES % (AUTO) 4 % (0-12); NEUTROPHILS # (AUTO) 7.2 10^3/uL (1.8-7.8); NEUTROPHILS % (AUTO) 88 % (42-75); PLATELET COUNT 144 10^3/uL (130-400); WHITE BLOOD COUNT 8.3 10^3/uL (4.3-11.0)
[2021-10-08 06:09] LABS: ALBUMIN 2.5 GM/DL (3.2-4.5); POTASSIUM 3.6 MMOL/L (3.6-5.0)
[2021-10-08 06:10] LABS: CALCIUM 7.5 MG/DL (8.5-10.1)
[2021-10-08 06:11] LABS: TOTAL PROTEIN 4.5 GM/DL (6.4-8.2)
[2021-10-08 06:13] LABS: BILIRUBIN,TOTAL 1.7 MG/DL (0.1-1.0)
[2021-10-08 06:15] LABS: CREATININE SERUM 1.1 MG/DL (0.60-1.30)
--- NOTE | 2021-10-08 06:32 | Progress Note - Hospitalist ---
Subjective HPI/CC On Admission Date Seen by Provider: Oct 08, 2021 Time Seen by Provider: 11:00 Subjective/Events-last exam Doing well No pain reported Eating ok Wants DC soon Review of Systems General: Fatigue, Malaise Objective Exam Vital Signs Vital Signs Date Time Temp Pulse Resp B/P (MAP) Pulse Ox O2 Delivery O2 Flow Rate FiO2 10/08/21 20:23 36.7 75 18 102/63 (76) 90 Nasal Cannula 3.00 Capillary Refill : Less Than 3 Seconds General Appearance: No Apparent Distress, WD/WN Respiratory: Lungs Clear, Normal Breath Sounds Cardiovascular: Regular Rate, Rhythm Neurologic/Psychiatric: Alert, Oriented x3 Results/Procedures Lab Laboratory Tests 10/08/21 05:32 Patient resulted labs reviewed. Assessment/Plan Assessment and Plan Assess & Plan/Chief Complaint Liver masses Ascites Elevated LFTs -CT and CTA of abomen/pelvis showed, according to radiology Extensive liver masses with the largest showing internal areas of hemorrhage. Findings are most suggestive of metastatic disease. Gastric wall thickening with mucosal hyperenhancement and submucosal edema favored to represent gastritis but could potentially represent a primary gastric malignancy. Moderate T10 compression fracture -consult gen surgery -AST-148, ALT-101, Alk Phos-422, likely due to masses -continue to monitor Acute heart failure -BNP of 4607 -echo ordered -hold IV fluids -consult cardiology Anemia -Hgb of 6.9 -1unit of pRBC transfused yesterday -continue to monitor Moved down to 4th floor GI prophylaxis- protonix DVT prophylaxis- SCDs Code status- full code Interventional radiology biopsy on Saturday DAVID CHAVARRIA DO Oct 08, 2021 06:32
[2021-10-08 07:32] VITALS: BP 100/53
[2021-10-08] MEDS: FUROSEMIDE 40 MG/4 ML INJ (LASIX) IVP SCH (09:34)
[2021-10-08] MEDS: SENNA W/DOCUSATE (SENOKOT S) TABLET PO SCH ×2 (09:34→20:51)
[2021-10-08] MEDS: PANTOPRAZOLE 40 MG (PROTONIX) VIAL IV SCH (09:34)
[2021-10-08 11:26] VITALS: BP 115/72
--- NOTE | 2021-10-08 15:42 | Cardiology Progress Note ---
Progress Note-Cardiology Events since last exam Date Seen by Provider: Oct 08, 2021 Time Seen by Provider: 15:38 Events since last exam I am following him due to peripheral edema and abnormal BNP level. His edema has nearly completely resolved. He denies chest pain, dyspnea at rest, palpitations, or syncope. This monitoring he vomited. He denies any nausea or abdominal pain. Certain portions of this document may have been dictated utilizing voice recognition technology. Inherent to this technology, typographical and grammatical errors may exist. As much as I am diligent to identify and correct these mistakes, some errors may remain in the document. Vitals Last set of Vitals Signs Vital Signs 10/08/21 11:26 Temp 36.3 Pulse 78 Resp 18 B/P (MAP) 115/72 (86) Pulse Ox 93 O2 Delivery Nasal Cannula O2 Flow Rate 3.00 Labs Labs Laboratory Tests 10/08/21 05:32 Exam Vital Signs Vital Signs Date Time Temp Pulse Resp B/P (MAP) Pulse Ox O2 Delivery O2 Flow Rate FiO2 10/08/21 11:26 36.3 78 18 115/72 (86) 93 Nasal Cannula 3.00 Physical Exam General: Alert. No acute distress. Eye: No xanthelasma. HENT: Normocephalic. Neck: Jugular venous pressure does not appear elevated. Respiratory: Lungs are clear to auscultation. Respirations are non-labored. Breath sounds are equal. Symmetrical chest wall expansion. Cardiovascular: Normal rate. Regular rhythm. No murmur. No gallop. Trace bilateral pretibial edema. Gastrointestinal: Soft. Normal bowel sounds. Skin: Warm. Dry. Neurologic: Alert and oriented to person, place, time. Cranial nerves 3-11 grossly intact. Psychiatric: Cooperative. Appropriate mood & affect. Labs Laboratory Tests Test 10/08/21 05:32 Range/Units White Blood Count 8.3 4.3-11.0 10^3/uL Red Blood Count 2.64 L 4.30-5.52 10^6/uL Hemoglobin 9.4 L 13.3-17.7 g/dL Hematocrit 28 L 40-54 % Mean Corpuscular Volume 105 H 80-99 fL Mean Corpuscular Hemoglobin 36 H 25-34 pg Mean Corpuscular Hemoglobin Concent 34 32-36 g/dL Red Cell Distribution Width 24.7 H 10.0-14.5 % Platelet Count 144 130-400 10^3/uL Mean Platelet Volume 11.0 9.0-12.2 fL Immature Granulocyte % (Auto) 1 % Neutrophils (%) (Auto) 88 H 42-75 % Lymphocytes (%) (Auto) 7 L 12-44 % Monocytes (%) (Auto) 4 0-12 % Eosinophils (%) (Auto) 1 0-10 % Basophils (%) (Auto) 0 0-10 % Neutrophils # (Auto) 7.2 1.8-7.8 10^3/uL Lymphocytes # (Auto) 0.6 L 1.0-4.0 10^3/uL Monocytes # (Auto) 0.4 0.0-1.0 10^3/uL Eosinophils # (Auto) 0.0 0.0-0.3 10^3/uL Basophils # (Auto) 0.0 0.0-0.1 10^3/uL Immature Granulocyte # (Auto) 0.1 0.0-0.1 10^3/uL Sodium Level 138 135-145 MMOL/L Potassium Level 3.6 3.6-5.0 MMOL/L Chloride Level 106 98-107 MMOL/L Carbon Dioxide Level 23 21-32 MMOL/L Anion Gap 9 5-14 MMOL/L Blood Urea Nitrogen 26 H 7-18 MG/DL Creatinine 1.10 0.60-1.30 MG/DL Estimat Glomerular Filtration Rate 74 BUN/Creatinine Ratio 24 Glucose Level 71 70-105 MG/DL Calcium Level 7.5 L 8.5-10.1 MG/DL Corrected Calcium 8.7 8.5-10.1 MG/DL Total Bilirubin 1.7 H 0.1-1.0 MG/DL Aspartate Amino Transf (AST/SGOT) 136 H 5-34 U/L Alanine Aminotransferase (ALT/SGPT) 101 H 0-55 U/L Alkaline Phosphatase 360 H 40-136 U/L Total Protein 4.5 L 6.4-8.2 GM/DL Albumin 2.5 L 3.2-4.5 GM/DL Diagnosis/Problems Diagnosis/Problems (1) Elevated brain natriuretic peptide (BNP) level Assessment & Plan: His echocardiogram did not show any significant structural heart disease to explain heart failure. He seems to have total body volume overload but has low protein and albumin levels. I suspect he is just third spacing due to hypotonic state. I do not think he is in heart failure. We can continue intravenous furosemide for the time being. We will need to watch his renal function closely. (2) Bilateral leg edema Status: Acute Assessment & Plan: I suspect this is multifactorial in etiology but I do not believe heart failure is causing his peripheral edema. As above, continue diuretic. The edema is almost completely resolved. I will consider changing the intravenous diuretic over to oral in the next couple of days. (3) Acute kidney injury Assessment & Plan: His creatinine level was slightly elevated at the time of admission but was similar 1 year ago. We will need to watch his renal function closely with the diuretic. His creatinine level actually seems to be improving. (4) Pleural effusion Assessment & Plan: I suspect this may be related to the hepatic insufficiency. A neoplastic effusion would also be in the differential diagnosis. As with his peripheral edema, I do not think this is due to heart failure. I will obtain a follow-up chest x-ray tomorrow. (5) Cigarette smoker Assessment & Plan: He needs to quit smoking. He was counseled in this regard. His cigarette smoking certainly puts him at increased risk for having multiple different cancers. (6) Liver masses Status: Acute Assessment & Plan: He is awaiting liver biopsy on Saturday. I encouraged him to stay in the hospital and continue with intravenous diuresis so that we can obtain a liver biopsy Saturday and help expedite getting a diagnosis for him. ROYCE ENNIS JR, MD Oct 08, 2021 15:42
[2021-10-08 16:00] VITALS: BP 112/66
--- NOTE | 2021-10-08 18:55 | Progress Note - Surgery ---
Subjective Date Seen by a Provider: Oct 08, 2021 Time Seen by a Provider: 18:52 Subjective/Events-last exam Patient sitting in chair. No abdominal pain. Feeling better. Tolerating diet. Denies n/v fever sweats chills shortness of breath or chest pain at this time. Objective Exam Vital Signs Date Time Temp Pulse Resp B/P (MAP) Pulse Ox O2 Delivery O2 Flow Rate FiO2 10/08/21 16:00 36.4 77 16 112/66 (81) 94 Nasal Cannula 3.00 10/08/21 11:26 36.3 78 18 115/72 (86) 93 Nasal Cannula 3.00 10/08/21 09:58 90 Nasal Cannula 3.00 10/08/21 08:55 90 Nasal Cannula 3.00 10/08/21 07:32 36.5 66 20 100/53 (69) 90 Nasal Cannula 3.00 10/08/21 04:53 36.1 66 18 106/60 (75) 91 Nasal Cannula 3.00 10/07/21 23:48 36.3 67 18 100/58 (72) 94 Nasal Cannula 3.00 10/07/21 20:00 Nasal Cannula 4.00 10/07/21 19:25 36.4 69 18 110/63 (79) 92 Nasal Cannula 4.00 I & O 10/08/21 06:59 Intake Total 570 ml Output Total 975 ml Balance -405 ml Capillary Refill : Less Than 3 Seconds General Appearance: No Apparent Distress, WD/WN, Chronically ill, Thin HEENT: PERRL/EOMI; No Photophobia; Scleral Icterus (L), Scleral Icterus (R) Neck: Full Range of Motion, Normal Inspection, Non Tender, Supple Respiratory: Chest Non Tender, No Accessory Muscle Use, No Respiratory Distress Cardiovascular: Regular Rate, Rhythm, No JVD Gastrointestinal: non tender, soft Extremity: Pedal Edema Neurologic/Psychiatric: Alert, Oriented x3, Depressed Affect Skin: Warm/Dry, Jaundice Lymphatic: No Adenopathy Results Lab Laboratory Tests 10/08/21 05:32: White Blood Count 8.3, Red Blood Count 2.64L, Hemoglobin 9.4L, Hematocrit 28L, Mean Corpuscular Volume 105H, Mean Corpuscular Hemoglobin 36H, Mean Corpuscular Hemoglobin Concent 34, Red Cell Distribution Width 24.7H, Platelet Count 144, Mean Platelet Volume 11.0, Immature Granulocyte % (Auto) 1, Neutrophils (%) (Auto) 88H, Lymphocytes (%) (Auto) 7L, Monocytes (%) (Auto) 4, Eosinophils (%) (Auto) 1, Basophils (%) (Auto) 0, Neutrophils # (Auto) 7.2, Lymphocytes # (Auto) 0.6L, Monocytes # (Auto) 0.4, Eosinophils # (Auto) 0.0, Basophils # (Auto) 0.0, Immature Granulocyte # (Auto) 0.1, Sodium Level 138, Potassium Level 3.6, Chloride Level 106, Carbon Dioxide Level 23, Anion Gap 9, Blood Urea Nitrogen 26H, Creatinine 1.10, Estimat Glomerular Filtration Rate 74, BUN/Creatinine Ratio 24, Glucose Level 71, Calcium Level 7.5L, Corrected Calcium 8.7, Total Vijay irubin 1.7H, Aspartate Amino Transf (AST/SGOT) 136H, Alanine Aminotransferase (ALT/SGPT) 101H, Alkaline Phosphatase 360H, Total Protein 4.5L, Albumin 2.5L Assessment/Plan Assessment/Plan Assessment/Plan Liver masses (possible gastric primary) -liver biopsy saturday Gastric thickening, gastritis vs primary Anemia- monitor Ascites - small volume not able to obtain by paracentesis -will need liver biopsy, will arrange with radiology on SATURDAY, Dr. Calvin notified. -further recommendations pending pathology. MORENA PIKE DO Oct 08, 2021 18:55
[2021-10-08 20:23] VITALS: BP 102/63
[2021-10-08 23:05] VITALS: BP 107/60
[2021-10-09] VITALS (14 sets, daily range): BP systolic 85–106; BP diastolic 54–69
[2021-10-09 06:02] LABS: BASOPHILS % (AUTO) 0 % (0-10); EOSINOPHILS % (AUTO) 0 % (0-10); HEMATOCRIT 32 % (40-54); HEMOGLOBIN 10.8 g/dL (13.3-17.7); LYMPHOCYTES # (AUTO) 0.8 10^3/uL (1.0-4.0); LYMPHOCYTES % (AUTO) 9 % (12-44); MEAN CORPUSCULAR HEMOGLOBIN 36 pg (25-34); MEAN CORPUSCULAR HGB CONC 34 g/dL (32-36); MEAN CORPUSCULAR VOLUME 105 fL (80-99); MEAN PLATELET VOLUME 11.5 fL (9.0-12.2); MONOCYTES # (AUTO) 0.5 10^3/uL (0.0-1.0); MONOCYTES % (AUTO) 5 % (0-12); NEUTROPHILS # (AUTO) 8.3 10^3/uL (1.8-7.8); NEUTROPHILS % (AUTO) 85 % (42-75); PLATELET COUNT 167 10^3/uL (130-400); WHITE BLOOD COUNT 9.7 10^3/uL (4.3-11.0)
[2021-10-09 06:27] LABS: ALBUMIN 2.7 GM/DL (3.2-4.5)
[2021-10-09 06:28] LABS: POTASSIUM 3.7 MMOL/L (3.6-5.0)
[2021-10-09 06:29] LABS: CALCIUM 7.8 MG/DL (8.5-10.1)
[2021-10-09 06:30] LABS: TOTAL PROTEIN 5.3 GM/DL (6.4-8.2)
[2021-10-09 06:32] LABS: BILIRUBIN,TOTAL 2.1 MG/DL (0.1-1.0)
[2021-10-09 06:33] LABS: CREATININE SERUM 1.68 MG/DL (0.60-1.30)
--- NOTE | 2021-10-09 07:09 | Progress Note - Surgery ---
ANAYAJAYY 10/09/21 0709: Subjective Date Seen by a Provider: Oct 09, 2021 Time Seen by a Provider: 07:04 Subjective/Events-last exam Pt is sitting in chair comfortably. Pt states that he is in no pain. Pt denies CP, SOB, and sweats. Objective Exam Vital Signs Date Time Temp Pulse Resp B/P (MAP) Pulse Ox O2 Delivery O2 Flow Rate FiO2 10/09/21 03:26 36.7 66 20 102/54 (70) 93 Nasal Cannula 3.00 10/08/21 23:05 36.9 77 18 107/60 (76) 92 Nasal Cannula 3.00 10/08/21 21:35 Nasal Cannula 3.00 10/08/21 20:23 36.7 75 18 102/63 (76) 90 Nasal Cannula 3.00 10/08/21 16:00 36.4 77 16 112/66 (81) 94 Nasal Cannula 3.00 10/08/21 11:26 36.3 78 18 115/72 (86) 93 Nasal Cannula 3.00 10/08/21 09:58 90 Nasal Cannula 3.00 10/08/21 08:55 90 Nasal Cannula 3.00 10/08/21 07:32 36.5 66 20 100/53 (69) 90 Nasal Cannula 3.00 I & O 10/09/21 07:00 Intake Total 920 ml Output Total 775 ml Balance 145 ml Capillary Refill : Less Than 3 Seconds General Appearance: No Apparent Distress, Thin HEENT: PERRL/EOMI, Normal ENT Inspection; No Photophobia Neck: Full Range of Motion, Normal Inspection, Non Tender, Supple Respiratory: No Accessory Muscle Use, No Respiratory Distress Cardiovascular: Regular Rate, Rhythm, No JVD Gastrointestinal: non tender, soft Extremity: Normal Inspection, Normal Range of Motion, Non Tender Neurologic/Psychiatric: Alert, Normal Mood/Affect Skin: Warm/Dry; No Rash Lymphatic: No Adenopathy Results Lab Laboratory Tests 10/09/21 05:48: White Blood Count 9.7, Red Blood Count 3.02L, Hemoglobin 10.8L, Hematocrit 32L, Mean Corpuscular Volume 105H, Mean Corpuscular Hemoglobin 36H, Mean Corpuscular Hemoglobin Concent 34, Red Cell Distribution Width 24.5H, Platelet Count 167, Mean Platelet Volume 11.5, Immature Granulocyte % (Auto) 1, Neutrophils (%) (Auto) 85H, Lymphocytes (%) (Auto) 9L, Monocytes (%) (Auto) 5, Eosinophils (%) (Auto) 0, Basophils (%) (Auto) 0, Neutrophils # (Auto) 8.3H, Lymphocytes # (Auto) 0.8L, Monocytes # (Auto) 0.5, Eosinophils # (Auto) 0.0, Basophils # (Auto) 0.0, Immature Granulocyte # (Auto) 0.1, Sodium Level 140, Potassium Level 3.7, Chloride Level 105, Carbon Dioxide Level 21, Anion Gap 14, Blood Urea Nitrogen 31H, Creatinine 1.68H, Estimat Glomerular Filtration Rate 44, BU N/Creatinine Ratio 18, Glucose Level 69L, Calcium Level 7.8L, Corrected Calcium 8.8, Total Bilirubin 2.1H, Aspartate Amino Transf (AST/SGOT) 154H, Alanine Aminotransferase (ALT/SGPT) 107H, Alkaline Phosphatase 412H, Total Protein 5.3L, Albumin 2.7L Assessment/Plan Assessment/Plan Assessment/Plan Liver masses (possible gastric primary) -liver biopsy today Gastric thickening, gastritis vs primary Anemia- monitor Ascites - small volume not able to obtain by paracentesis -further recommendations pending pathology Discussed with radiology, liver biopsy scheduled for today NPO continue medical management MORENA SCHMIDT DO 10/09/21 0916: Subjective Subjective/Events-last exam Patient sitting in chair. No abdominal pain. Anxious about biopsy to be done today. No new complaints. Denies n/v fever sweats chills shortness of breath or chest pain. Objective Exam General Appearance: No Apparent Distress, Anxious, Thin HEENT: PERRL/EOMI, Normal ENT Inspection Neck: Normal Inspection, Non Tender Respiratory: Chest Non Tender, No Accessory Muscle Use, No Respiratory Distress Cardiovascular: Regular Rate, Rhythm, No JVD Gastrointestinal: non tender, soft Extremity: Normal Inspection, Normal Range of Motion, Non Tender Neurologic/Psychiatric: Alert, Normal Mood/Affect Skin: Normal Color, Jaundice Lymphatic: No Adenopathy Assessment/Plan Assessment/Plan Assessment/Plan Liver masses (possible gastric primary) -liver biopsy today Gastric thickening, gastritis vs primary Anemia- monitor Ascites - small volume not able to obtain by paracentesis -further recommendations pending pathology Discussed with radiology, liver biopsy scheduled for today NPO continue medical management Supervisory-Addendum Brief Verification & Attestation Participated in pt care: history, MDM, physical Personally performed: exam, history, MDM, supervision of care Care discussed with: Medical Student Procedures: n/a Results interpretation: Verified all documentation Verification and Attestation of Medical Student E/M Service A medical student performed and documented this service in my presence. I reviewed and verified all information documented by the medical student and made modifications to such information, when appropriate. I personally performed the physical exam and medical decision making. Morena Schmidt, Oct 09, 2021,09:23 JAYY JULIEN Oct 09, 2021 07:09 MORENA SCHMIDT DO Oct 09, 2021 09:16
[2021-10-09] MEDS: SENNA W/DOCUSATE (SENOKOT S) TABLET PO SCH ×2 (09:11→21:02)
[2021-10-09] MEDS: FUROSEMIDE 40 MG/4 ML INJ (LASIX) IVP SCH (09:12)
[2021-10-09] MEDS: PANTOPRAZOLE 40 MG (PROTONIX) VIAL IV SCH (09:12)
--- NOTE | 2021-10-09 09:26 | Diagnostic Imaging Report ---
INDICATION: Pleural effusion. TIME OF EXAM: 9:07 AM. COMPARISON: Correlation is made with the prior chest from 10/06/2021. FINDINGS: The heart size is stable. The right-sided effusion has decreased in size since the study of 3 days earlier. There is now trace pleural fluid present. There does appear to be some infiltrate or atelectasis in the left base obscuring the left hemidiaphragm. The mid and upper lung bravo are clear. There is no pneumothorax. IMPRESSION: Reduction in the right pleural effusion. There is also improved aeration in the right base. The patient does have some left basilar infiltrate or atelectasis. Dictated by: Dictated on workstation # [id number]
[2021-10-09] MEDS ORDERED: LIDOCAINE 1% INJ 20 ML VIAL INJ ONE (10:15)
[2021-10-09] MEDS ORDERED: fentaNYL INJ 100 MCG/2 ML AMP IVP ONE (10:15)
[2021-10-09] MEDS ORDERED: MIDAZOLAM 2 MG/2 ML (VERSED) VIAL IVP ONE (10:15)
[2021-10-09 11:06] LABS: INR 1.3 (0.8-1.4); PROTHROMBIN TIME PATIENT 16.5 SEC (12.2-14.7)
--- NOTE | 2021-10-09 11:15 | Progress Note - Hospitalist ---
BRENTCHARLESZACARIAS 10/09/21 1115: Subjective HPI/CC On Admission Date Seen by Provider: Oct 09, 2021 Subjective/Events-last exam Ravinder Kyle is a 66y/o M being seen for follow up due to liver masses. Pt denies having any pain today. Reports that his appetite has been good. Will be having a liver biopsy today. Denies having any other concerns. Review of Systems General: No Chills, No Night Sweats HEENT: No Head Aches, No Visual Changes Pulmonary: No Dyspnea, No Cough Cardiovascular: No: Chest Pain, Palpitations Gastrointestinal: No: Nausea, Vomiting, Abdominal Pain Genitourinary: No Dysuria, No Frequency Musculoskeletal: No: neck pain, back pain Neurological: No: Weakness, Numbness Objective Exam Vital Signs Vital Signs Date Time Temp Pulse Resp B/P (MAP) Pulse Ox O2 Delivery O2 Flow Rate FiO2 10/09/21 08:00 36.4 74 16 106/68 (81) 94 10/09/21 03:26 Nasal Cannula 3.00 Capillary Refill : Less Than 3 Seconds General Appearance: No Apparent Distress, Cachetic HEENT: PERRL/EOMI; No Photophobia; Scleral Icterus (L), Scleral Icterus (R) Respiratory: Lungs Clear, Normal Breath Sounds, No Accessory Muscle Use Cardiovascular: Regular Rate, Rhythm, No Murmur Gastrointestinal: Non Tender, Soft, Hepatomegaly Extremity: Non Tender, No Calf Tenderness, No Pedal Edema Neurologic/Psychiatric: Alert, Normal Mood/Affect Lymphatic: No Adenopathy Results/Procedures Lab Laboratory Tests 10/09/21 05:48 Patient resulted labs reviewed. Assessment/Plan Assessment and Plan Assess & Plan/Chief Complaint Liver masses Ascites Elevated LFTs -CT and CTA of abomen/pelvis showed, according to radiology Extensive liver masses with the largest showing internal areas of hemorrhage. Findings are most suggestive of metastatic disease. Gastric wall thickening with mucosal hyperenhancement and submucosal edema favored to represent gastritis but could potentially represent a primary gastric malignancy. Moderate T10 compression fracture -followed by gen surgery -LFTs continue to be elevated -liver biopsy today -continue to monitor Acute heart failure -BNP of 4607 on admission -echo done, see report for details -currently on lasix 40mg QD -monitor kidney function -followed by cardiology Anemia(improving) -Hgb of 11.4 today -1unit of pRBC given on 10/06 -continue to monitor GI prophylaxis- protonix DVT prophylaxis- SCDs Code status- full code PALAK ARANDA DO 10/10/21 0525: Subjective HPI/CC On Admission Time Seen by Provider: 10:00 Subjective/Events-last exam Pt undergoing biopsy today by interventional radiology Pt appears to be very cachectic and pale Supervisory-Addendum Brief Verification & Attestation Participated in pt care: history, MDM, physical Personally performed: exam, history, MDM, supervision of care Care discussed with: Medical Student Procedures: n/a Results interpretation: Verified all documentation Verification and Attestation of Medical Student E/M Service A medical student performed and documented this service in my presence. I reviewed and verified all information documented by the medical student and made modifications to such information, when appropriate. I personally performed the physical exam and medical decision making. Palak Aranda, Oct 10, 2021,05:24 ZACARIAS MERCADO Oct 09, 2021 11:15 PALAK ARANDA DO Oct 10, 2021 05:25
[2021-10-09] MEDS ORDERED: LIDOCAINE 1% INJ 50 ML (XYLOCAINE) VIAL IJ ONE (11:30)
--- NOTE | 2021-10-09 11:36 | Physical Therapy Daily Note ---
PT Daily Note-Current Subjective Patient agrees to PT. Mental Status Patient Orientation: Normal For Age Attachments: Oxygen Transfers SCALE: Activities may be completed with or without assistive devices. 9-Jtasyppzln-yygoyic completes the activity by him/herself with no assistance from a helper. 5-Set-up or Clean-up Assistance-helper sets up or cleans up; patient completes activity. [place] assists only prior to or following the activity. 4-Supervision or Touching Assistance-helper provides verbal cues and/or touching/steadying and/or contact guard assistance as patient completes activity. Assistance may be provided throughout the activity or intermittently. 3-Partial/Moderate Assistance-helper does LESS THAN HALF the effort. [place] lifts, holds or supports trunk or limbs, but provides less than half the effort. 2-Substantial/Maximal Assistance-helper does MORE THAN HALF the effort. [place] lifts or holds trunk or limbs and provides more than half the effort. 0-Oebtspdey-yxccma does ALL the effort. Patient does none of the effort to complete the activity. Or, the assistance of 2 or more helpers is required for the patient to complete the activity. If activity was not attempted, code reason: 7-Patient Refused. 9-Not Applicable-not attempted and the patient did not perform the activity before the current illness, exacerbation or injury. 10-Not Attempted due to Environmental Limitations-(lack of equipment, weather restraints, etc.). 88-Not Attempted due to Medical Conditions or Safety Concerns. Sit to Stand (QC): 4 Gait Training Distance: 180' Walk 10 feet (QC): 4 Walk 50 ft with 2 Turns(QC): 4 Walk 150 ft (QC): 4 Gait Assistive Device: FWW very slow, steady gait sequence Assessment Patient up in recliner with chair alarm activated. PT to increase activity as tolerated by patient. PT Inseamer Goals Inseamer Goals PT Halfway Goals Time Frame: Oct 14, 2021 Roll Left & Right (QC): 4 (SBA) Sit to Lying (QC): 4 (SBA) Lying-Sitting on Side/Bed(QC): 4 (SBA) Sit to Stand (QC): 4 (CGA) Chair/Mdi-pz-Fhhvj Xfer(QC): 4 (CGA) Walk 10 feet (QC): 4 (CGA) Walk 50ft with 2 Turns (QC): 4 (CGA) PT Plan Treatment/Plan Treatment Plan: Continue Plan of Care Treatment Plan: Bed Mobility, Education, Functional Activity [place], Functional Strength, Gait, Safety, Therapeutic Exercise, Transfers Treatment Duration: Oct 14, 2021 Frequency: 6 times per week Estimated Hrs Per Day: .25 hour per day Patient and/or Family Agrees t: Yes Time/GCodes Time In: 1045 Time Out: 1055 Total Billed Treatment Time: 10 Total Billed Treatment 1 visit FA 10 min DEISY FINNEGAN PT Oct 09, 2021 11:36
[2021-10-09] MEDS ORDERED: LIDOCAINE 1% INJ 50 ML (XYLOCAINE) VIAL ONE (14:42)
--- NOTE | 2021-10-09 15:18 | Pre-Op Note & Conscious Sedat ---
Pre-Operative Progress Note Date of Available H&P: Oct 09, 2021 Date H&P Reviewed: Oct 09, 2021 Time H&P Reviewed: 14:00 Pre-Op Diagnosis: liver mass Conscious Sedation Pre-Proced Time 14:00 ASA Score 2 For ASA 3 and 4: Consider anesthesia and medical clearance. Also, for patients with a history of failed moderate sedation consider anesthesia. Airway Lungs Heart ASA score ASA 1: a normal healthy patient ASA 2: a patient with a mild systemic disease (mid diabetes, controlled hypertension, obesity ASA 3: a patient with a severe systemic disease that limits activity (angina, COPD, prior Myocardial infarction) ASA 4: a patient with an incapacitating disease that is a constant threat to life (CHF, renal failure) ASA 5: a moribund patient not expected to survive 24 hrs. (ruptured aneurysm) ASA 6: a declared brain- patient whose organs are being harvested. For emergent operations, add the letter E after the classification Mallampati Classification Grade 2 Sedation Plan Analgesia, Amnesia, Plan communicated to team members, Discussed options with patient/fam, Discussed risks with patient/fam The patient is an appropriate candidate to undergo the planned procedure, sedation, and anesthesia. The patient immediately re-assessed prior to indication. ROMELIA NGUYEN MD Oct 09, 2021 15:18
--- NOTE | 2021-10-09 15:49 | Diagnostic Imaging Report ---
INDICATION: LIVER MASS TECHNIQUE: All CT scans use one or more of the following dose optimizing techniques: automated exposure control, MA and/or KvP adjustment based on patient size and exam type or iterative reconstruction. Patient was brought to the CT suite and placed on the table in the supine position. Axial imaging through the abdomen was performed to evaluate appropriate entry site. Right abdomen was prepped and draped in the usual sterile fashion. A small amount of 1% lidocaine was utilized for local anesthesia. An 18-gauge coaxial Temno needle was advanced and placed with its tip along the margin of the dominant mass in the medial inferior right lobe of the liver. Four core biopsies were obtained. A blood patch was injected during needle removal. Total procedure time was 6 minutes. Hemostasis was obtained using manual compression. Follow-up imaging shows no complicating features. IMPRESSION: CT-guided core biopsy of the dominant mass in the inferior right lobe of the liver. Pathology results are currently pending. Dictated by: Dictated on workstation # [id number]
[2021-10-10 04:26] VITALS: BP 96/60
[2021-10-10 05:59] LABS: BASOPHILS % (AUTO) 0 % (0-10); EOSINOPHILS % (AUTO) 1 % (0-10); HEMATOCRIT 24 % (40-54); HEMOGLOBIN 8.4 g/dL (13.3-17.7); LYMPHOCYTES # (AUTO) 0.5 10^3/uL (1.0-4.0); LYMPHOCYTES % (AUTO) 7 % (12-44); MEAN CORPUSCULAR HEMOGLOBIN 36 pg (25-34); MEAN CORPUSCULAR HGB CONC 35 g/dL (32-36); MEAN CORPUSCULAR VOLUME 104 fL (80-99); MEAN PLATELET VOLUME 11.6 fL (9.0-12.2); MONOCYTES # (AUTO) 0.4 10^3/uL (0.0-1.0); MONOCYTES % (AUTO) 6 % (0-12); NEUTROPHILS # (AUTO) 6.7 10^3/uL (1.8-7.8); NEUTROPHILS % (AUTO) 86 % (42-75); PLATELET COUNT 247 10^3/uL (130-400); WHITE BLOOD COUNT 7.8 10^3/uL (4.3-11.0)
[2021-10-10 06:18] LABS: ALBUMIN 2.1 GM/DL (3.2-4.5)
[2021-10-10 06:19] LABS: POTASSIUM 3.5 MMOL/L (3.6-5.0)
[2021-10-10 06:20] LABS: CALCIUM 7.4 MG/DL (8.5-10.1)
[2021-10-10 06:21] LABS: TOTAL PROTEIN 4.3 GM/DL (6.4-8.2)
[2021-10-10 06:23] LABS: BILIRUBIN,TOTAL 1.7 MG/DL (0.1-1.0)
[2021-10-10 06:25] LABS: CREATININE SERUM 1.97 MG/DL (0.60-1.30)
--- NOTE | 2021-10-10 07:17 | Progress Note - Surgery ---
ANAYAJAYY 10/10/21 0717: Subjective Date Seen by a Provider: Oct 10, 2021 Time Seen by a Provider: 07:11 Subjective/Events-last exam Pt is laying in bed comfortably. Pt states that he has no pain. Per nurse, pt has been experiencing generalized weakness and shortness of breath with activity . Nurse stated that patient has requested to go home. Pt denies CP, n/v. Objective Exam Vital Signs Date Time Temp Pulse Resp B/P (MAP) Pulse Ox O2 Delivery O2 Flow Rate FiO2 10/10/21 04:26 36.6 77 16 96/60 (72) 93 Nasal Cannula 6.00 10/09/21 23:37 36.8 78 18 98/54 (69) 93 Nasal Cannula 6.00 10/09/21 21:04 Nasal Cannula 6.00 10/09/21 19:26 36.7 83 20 92/62 (72) 94 Nasal Cannula 6.00 10/09/21 18:30 36.7 80 20 92/60 (71) 95 Nasal Cannula 6.00 10/09/21 17:30 36.4 88 18 85/60 (68) 92 Nasal Cannula 6.00 10/09/21 16:30 37.1 93 20 95/63 (74) 90 Nasal Cannula 6.00 10/09/21 16:00 36.2 91 20 102/68 (79) 90 Nasal Cannula 6.00 10/09/21 15:30 36.5 75 20 101/63 (76) 95 Nasal Cannula 6.00 10/09/21 15:15 36.3 80 20 96/64 (75) 97 Nasal Cannula 6.00 10/09/21 14:55 66 12 95/69 (78) 92 Nasal Cannula 6.00 10/09/21 14:50 66 12 97/61 (73) 92 Nasal Cannula 6.00 10/09/21 14:45 66 14 101/58 (72) 92 Nasal Cannula 6.00 10/09/21 11:51 36.7 72 18 103/62 (76) 96 Nasal Cannula 6.00 10/09/21 09:00 Nasal Cannula 6.00 10/09/21 08:00 36.4 74 16 106/68 (81) 94 I & O 10/10/21 07:00 Intake Total 1100 ml Output Total 250 ml Balance 850 ml Capillary Refill : Less Than 3 Seconds General Appearance: No Apparent Distress, Cachetic HEENT: PERRL/EOMI; No Photophobia Neck: Normal Inspection, Non Tender Respiratory: Normal Breath Sounds, No Accessory Muscle Use Cardiovascular: No JVD, No Murmur Gastrointestinal: non tender, soft Extremity: Non Tender, No Calf Tenderness, No Pedal Edema Neurologic/Psychiatric: Alert, Normal Mood/Affect Skin: Normal Color, Warm/Dry Lymphatic: No Adenopathy Results Lab Laboratory Tests 10/09/21 10:42: Prothrombin Time 16.5H, INR Comment 1.3, Activated Partial Thromboplast Time 40H 10/09/21 22:33: Glucometer 180H 10/10/21 05:51: White Blood Count 7.8, Red Blood Count 2.31L, Hemoglobin 8.4#L, Hematocrit 24L, Mean Corpuscular Volume 104H, Mean Corpuscular Hemoglobin 36H, Mean Corpuscular Hemoglobin Concent 35, Red Cell Distribution Width 23.9H, Platelet Count 247, Mean Platelet Volume 11.6, Immature Granulocyte % (Auto) 1, Neutrophils (%) (Auto) 86H, Lymphocytes (%) (Auto) 7L, Monocytes (%) (Auto) 6, Eosinophils (%) (Auto) 1, Basophils (%) (Auto) 0, Neutrophils # (Auto) 6.7, Lymphocytes # (Auto) 0.5L, Monocytes # (Auto) 0.4, Eosinophils # (Auto) 0.0, Basophils # (Auto) 0.0, Immature Granulocyte # (Auto) 0.1, Sodium Level 135, Potassium Level 3.5L, Chloride Level 105, Carbon Dioxide Level 21, Anion Gap 9, Blood Urea Nitrogen 37H, Creatinine 1.97H, Estimat Glomerular Filtration Rate 37, BUN/Creatinine Ratio 19, Glucose Level 145H, Calcium Level 7.4L, Corrected Calcium 8.9, Total Bilirubin 1.7H, Aspartate Amino Transf (AST/SGOT) 166H, Alanine Aminotransferase (ALT/SGPT) 107H, Alkaline Phosphatase 373H, Total Protein 4.3L, Albumin 2.1L Assessment/Plan Assessment/Plan Assessment/Plan Liver masses (possible gastric primary) -liver biopsy today Gastric thickening, gastritis vs primary Anemia- monitor Ascites - small volume not able to obtain by paracentesis -further recommendations pending pathology CT guided liver biopsy was done yesterday, waiting on pathology results continue medical management MORENA SCHMIDT DO 10/11/21 1454: Subjective Subjective/Events-last exam Patient without pain. Sitting in chair. Tolerated liver biopsy he states. Slight drop in Hgb. Denies n/v fever sweats chills shortness of breath or chest pain. Objective Exam General Appearance: No Apparent Distress, Chronically ill HEENT: PERRL/EOMI, Normal ENT Inspection Neck: Normal Inspection, Non Tender Respiratory: Chest Non Tender, No Accessory Muscle Use, No Respiratory Distress Cardiovascular: Regular Rate, Rhythm, No JVD Gastrointestinal: non tender, soft Extremity: Non Tender, No Calf Tenderness Neurologic/Psychiatric: Alert, Normal Mood/Affect Skin: Warm/Dry, Jaundice Lymphatic: No Adenopathy Assessment/Plan Assessment/Plan Assessment/Plan Liver masses (possible gastric primary) -liver biopsy await pathology Gastric thickening, gastritis vs primary Anemia- monitor Ascites - small volume not able to obtain by paracentesis -further recommendations pending pathology had liver biopsy waiting on pathology results if not diagnostic could consider egd to check for gastric pathology Supervisory-Addendum Brief Verification & Attestation Participated in pt care: history, MDM, physical Personally performed: exam, history, MDM, supervision of care Care discussed with: Medical Student Procedures: n/a Results interpretation: Verified all documentation Verification and Attestation of Medical Student E/M Service A medical student performed and documented this service in my presence. I reviewed and verified all information documented by the medical student and made modifications to such information, when appropriate. I personally performed the physical exam and medical decision making. Morena Schmidt, Oct 10, 2021,14:54 JAYY JULIEN Oct 10, 2021 07:17 MORENA SCHMIDT DO Oct 11, 2021 14:54
[2021-10-10 08:46] VITALS: BP 81/43
[2021-10-10] MEDS ORDERED: NS IV 1000 ML 1,000 ML IV STA (09:04)
[2021-10-10] MEDS: FUROSEMIDE 40 MG/4 ML INJ (LASIX) IVP SCH (09:05)
[2021-10-10] MEDS: SENNA W/DOCUSATE (SENOKOT S) TABLET PO SCH ×2 (09:05→23:32)
[2021-10-10] MEDS: PANTOPRAZOLE 40 MG (PROTONIX) VIAL IV SCH (09:30)
[2021-10-10 10:55] VITALS: BP 102/64
[2021-10-10 11:15] VITALS: BP 102/64
--- NOTE | 2021-10-10 11:31 | Physical Therapy Progress Note ---
Therapy Progress Note Patient currently in bed and very lethargic. Patient did rouse and declined PT at this time. RN notified. PT voices concern on patient current state. 1 ref DEISY FINNEGAN PT Oct 10, 2021 11:31
--- NOTE | 2021-10-10 12:39 | Progress Note - Hospitalist ---
ZACARIAS MERCADO 10/10/21 1239: Subjective HPI/CC On Admission Date Seen by Provider: Oct 10, 2021 Subjective/Events-last exam Ravinder Kyle is a 66y/o M who is being seen for follow up due to liver masses. Pt was difficult to awake when I was first in the room this morning. He did become awake and alert after awhile. States that he is drinking fluids and trying to eat. He had a liver biopsy done yesterday. When asked what he wanted to have done if his heart were to stop beating he said "it would be his time to go". Review of Systems General: No Chills; Fatigue; No Other (fever) Pulmonary: Cough; No Pleuritic Chest Pain Cardiovascular: No: Chest Pain, Palpitations Gastrointestinal: Abdominal Pain; No: Vomiting Neurological: Weakness; No: Numbness Objective Exam Vital Signs Vital Signs Date Time Temp Pulse Resp B/P (MAP) Pulse Ox O2 Delivery O2 Flow Rate FiO2 10/10/21 11:15 65 20 102/64 (77) 92 Nasal Cannula 6.00 10/10/21 08:46 36.9 Capillary Refill : Less Than 3 Seconds General Appearance: No Apparent Distress, Cachetic Respiratory: No Respiratory Distress, Wheezing Cardiovascular: Regular Rate, Rhythm, No Murmur Gastrointestinal: Non Tender, Soft, Hepatomegaly Extremity: Non Tender, No Calf Tenderness, Pedal Edema (minimal) Neurologic/Psychiatric: Alert, Oriented x3 Skin: Normal Color, Warm/Dry Lymphatic: No Adenopathy Results/Procedures Lab Laboratory Tests 10/10/21 05:51 Patient resulted labs reviewed. Assessment/Plan Assessment and Plan Assess & Plan/Chief Complaint Liver masses Ascites Elevated LFTs -CT and CTA of abomen/pelvis showed, according to radiology Extensive liver masses with the largest showing internal areas of hemorrhage. Findings are most suggestive of metastatic disease. Gastric wall thickening with mucosal hyperenhancement and submucosal edema favored to represent gastritis but could potentially represent a primary gastric malignancy. Moderate T10 compression fracture -followed by gen surgery -LFTs continue to be elevated -liver biopsy on 10/09, awaiting pathology report -continue to monitor Acute kidney injury -BUN and Cr have been trending up. -discontinuing lasix -will recheck BUN/Cr tomorrow Hypotension -BP of 81/43 this AM -Given 1L bolus of NS and BP improved -continue to monitor Acute heart failure(improving) -BNP of 4607 on admission -echo done, see report for details -was on lasix 40mg QD, has been stopped -monitor kidney function -was followed by cardiology Anemia -Hgb of 11.4 yesterday, decreased to 8.4 today -1unit of pRBC given on 10/06 -continue to monitor GI prophylaxis- protonix DVT prophylaxis- SCDs Code status- DNR PALAK ARANDA DO 10/11/21 0525: Subjective HPI/CC On Admission Time Seen by Provider: 10:00 Subjective/Events-last exam Make patient DNR Comfort care protocol initiated later in the day Assessment/Plan Assessment and Plan Assess & Plan/Chief Complaint DNR Comfort care Supervisory-Addendum Brief Verification & Attestation Participated in pt care: history, MDM, physical Personally performed: exam, history, MDM, supervision of care Care discussed with: Medical Student Procedures: n/a Results interpretation: Verified all documentation Verification and Attestation of Medical Student E/M Service A medical student performed and documented this service in my presence. I reviewed and verified all information documented by the medical student and made modifications to such information, when appropriate. I personally performed the physical exam and medical decision making. Palak Aranda Oct 11, 2021,05:24 ZACARIAS MERCADO Oct 10, 2021 12:39 PALAK ARANDA DO Oct 11, 2021 05:25
[2021-10-10 15:43] VITALS: BP 112/62
--- NOTE | 2021-10-10 18:00 | Cardiology Progress Note ---
Progress Note-Cardiology Events since last exam Date Seen by Provider: Oct 10, 2021 Time Seen by Provider: 17:55 Events since last exam I am following him due to peripheral edema. The edema has resolved. His cre atinine started to rise so the intravenous furosemide was just continued. He had a liver biopsy on 10/09 and pathology results are still pending. He denies chest discomfort, he does have some dyspnea when getting out of his chair. He denies palpitations or syncope. Certain portions of this document may have been dictated utilizing voice recognition technology. Inherent to this technology, typographical and grammatical errors may exist. As much as I am diligent to identify and correct these mistakes, some errors may remain in the document. Vitals Last set of Vitals Signs Vital Signs 10/10/21 15:43 Temp 36.7 Pulse 74 Resp 20 B/P (MAP) 112/62 (79) Pulse Ox 95 O2 Delivery Nasal Cannula O2 Flow Rate 5.00 Labs Labs Laboratory Tests 10/10/21 05:51 Exam Vital Signs Vital Signs Date Time Temp Pulse Resp B/P (MAP) Pulse Ox O2 Delivery O2 Flow Rate FiO2 10/10/21 15:43 36.7 74 20 112/62 (79) 95 Nasal Cannula 5.00 Physical Exam General: Alert. No acute distress. He appears chronically ill. Eye: No xanthelasma. HENT: Normocephalic. Neck: Jugular venous pressure does not appear elevated. Respiratory: Lungs are clear to auscultation. Respirations are non-labored. Breath sounds are equal. Symmetrical chest wall expansion. Cardiovascular: Normal rate. Regular rhythm. No murmur. No gallop. No edema. Gastrointestinal: Soft. Normal bowel sounds. Skin: Warm. Dry. Neurologic: Alert and oriented to person, place, time. Cranial nerves 3-11 grossly intact. Psychiatric: Cooperative. Appropriate mood & affect. Labs Laboratory Tests Test 10/09/21 22:33 10/10/21 05:51 10/10/21 09:55 Range/Units Glucometer 180 H 88 70-110 MG/DL White Blood Count 7.8 4.3-11.0 10^3/uL Red Blood Count 2.31 L 4.30-5.52 10^6/uL Hemoglobin 8.4 #L 13.3-17.7 g/dL Hematocrit 24 L 40-54 % Mean Corpuscular Volume 104 H 80-99 fL Mean Corpuscular Hemoglobin 36 H 25-34 pg Mean Corpuscular Hemoglobin Concent 35 32-36 g/dL Red Cell Distribution Width 23.9 H 10.0-14.5 % Platelet Count 247 130-400 10^3/uL Mean Platelet Volume 11.6 9.0-12.2 fL Immature Granulocyte % (Auto) 1 % Neutrophils (%) (Auto) 86 H 42-75 % Lymphocytes (%) (Auto) 7 L 12-44 % Monocytes (%) (Auto) 6 0-12 % Eosinophils (%) (Auto) 1 0-10 % Basophils (%) (Auto) 0 0-10 % Neutrophils # (Auto) 6.7 1.8-7.8 10^3/uL Lymphocytes # (Auto) 0.5 L 1.0-4.0 10^3/uL Monocytes # (Auto) 0.4 0.0-1.0 10^3/uL Eosinophils # (Auto) 0.0 0.0-0.3 10^3/uL Basophils # (Auto) 0.0 0.0-0.1 10^3/uL Immature Granulocyte # (Auto) 0.1 0.0-0.1 10^3/uL Sodium Level 135 135-145 MMOL/L Potassium Level 3.5 L 3.6-5.0 MMOL/L Chloride Level 105 98-107 MMOL/L Carbon Dioxide Level 21 21-32 MMOL/L Anion Gap 9 5-14 MMOL/L Blood Urea Nitrogen 37 H 7-18 MG/DL Creatinine 1.97 H 0.60-1.30 MG/DL Estimat Glomerular Filtration Rate 37 BUN/Creatinine Ratio 19 Glucose Level 145 H 70-105 MG/DL Calcium Level 7.4 L 8.5-10.1 MG/DL Corrected Calcium 8.9 8.5-10.1 MG/DL Total Bilirubin 1.7 H 0.1-1.0 MG/DL Aspartate Amino Transf (AST/SGOT) 166 H 5-34 U/L Alanine Aminotransferase (ALT/SGPT) 107 H 0-55 U/L Alkaline Phosphatase 373 H 40-136 U/L Total Protein 4.3 L 6.4-8.2 GM/DL Albumin 2.1 L 3.2-4.5 GM/DL Diagnosis/Problems Diagnosis/Problems (1) Bilateral leg edema Status: Acute Assessment & Plan: I suspect this is primarily related to his acute kidney injury and liver masses with abnormal liver function. There may be some small component of acute heart failure with preserved ejection. The diuretic has been discontinued. He does not appear to have any acute, active cardiac issues at this time. Cardiology will follow from [facility]. He does not need long-term cardiology follow-up following discharge. (2) Elevated brain natriuretic peptide (BNP) level Assessment & Plan: His echocardiogram did not show any significant structural heart disease to explain heart failure. He seems to have had total body volume overload and has low protein and albumin levels. I suspect he is just third spacing due to hypotonic state. His edema has resolved and the creatinine went up so the diuretic was discontinued which is reasonable. I do not think he will need any diuretic long-term. (3) Acute kidney injury Assessment & Plan: His creatinine level was slightly elevated at the time of admission but was similar 1 year ago. As above, diuretic has now been discontinued. (4) Pleural effusion Assessment & Plan: I suspect this may be related to the hepatic insufficiency. A neoplastic effusion would also be in the differential diagnosis. His follow- up chest x-ray showed some improvement in the effusion but not completely resolved. (5) Cigarette smoker Assessment & Plan: He needs to quit smoking. He was counseled in this regard. His cigarette smoking certainly puts him at increased risk for having multiple different cancers. (6) Liver masses Status: Acute Assessment & Plan: The biopsy was performed on 10/09 and results are pending. ROYCE ENNIS JR, MD Oct 10, 2021 18:00
--- NOTE | 2021-10-10 18:29 | Physician Query Clarification ---
Physician Query-General Query to Physician: The medical record reflects the following clinical evidence: Clinical Indicators: RR 18 on admission is predominately 18 to 20, O2 sat 92% on admission was started on 3 L O2 sat improved to 100% then O2 sat decreased to 90% was increased to 4 L, has been on 3 to 4 L for several days then was increased to 6 L and has been on 6 L for more than 24 hours, 02 Sats 92% percent at times on 6L (P/F=65/.62=570), Documentation of SOA at rest on the 10/08/2021, Risk Factor(s): No documentation of home 02 use, Smoker, Edema, Treatment: Supplemental 02 increasing amounts up to 6L, IV lasix, Monitoring of respiratory status. multiple Chest xrays 1. Acute respiratory failure, w hypoxia 2. Other explanation of clinical findings 3. Unable to determine (no explanation for clinical findings) Please clarify and document your clinical opinion in the progress notes and discharge summary including the definitive and/or presumptive diagnosis, (suspected or probable), related to the above clinical findings. Please include clinical findings supporting your diagnosis. Madai Stafford RN, MSN Clinical Customer Account Executive [phone] [email or web address] PHYSICIAN RESPONSE: Based on the clinical findings in the record, please respond to the query above on this document as an addendum. Physician Response: Physician Response 1 If you have questions please contact: Scoop Filler: Ext: Thank you for your time and cooperation. Clinical Customer Account Executive/Scoop Filler This is a permanent part of the medical record MADAI STAFFORD Oct 10, 2021 18:29 DAVID CHAVARRIA DO Oct 10, 2021 21:05
[2021-10-10 19:44] VITALS: BP 82/50
[2021-10-10] MEDS ORDERED: morphine INJ 4 MG/ML 1 ML (VIAL/SYRINGE) IV PRN (20:15)
[2021-10-10] MEDS ORDERED: GLYCOPYRROLATE 0.2 MG/ML (ROBINUL) 2 ML VIAL IV PRN (20:15)
[2021-10-10] MEDS ORDERED: ATROPINE 1% OPHTHALMIC SOLN 2 ML SL PRN (20:15)
[2021-10-10] MEDS ORDERED: RT-ALBUTEROL/IPRATROPIUM 3 ML (DUONEB) VIAL INH PRN (20:15)
[2021-10-10] MEDS ORDERED: ONDANSETRON 4 MG/2 ML (SDV) Z0FRAN IVP PRN (20:15)
[2021-10-10] MEDS ORDERED: BISACODYL 10 MG SUPP (DULCOLAX) PR PRN (20:15)
[2021-10-10] MEDS ORDERED: LORazepam 1 MG (ATIVAN) TAB SL PRN (20:15)
[2021-10-10] MEDS ORDERED: morphine (ROXINOL) 10 MG/0.5 ML oral conc 0.5 ML PO PRN (20:15)
[2021-10-10] MEDS ORDERED: SALIVA STIMULANT MOUTH SPRAY (BIOTENE) 1.5 OZ MM PRN (20:15)
[2021-10-10] MEDS ORDERED: ACETAMINOPHEN 650 MG SUPP (TYLENOL) PR PRN (20:15)
[2021-10-10] MEDS ORDERED: ARTIFICAL TEARS 0.4 ML UNIT DOSE (REFRESH PLUS) OU PRN (20:15)
[2021-10-10] MEDS ORDERED: LORazepam ORAL CONCENTRATE 2 MG/ML 30 ML (ATIVAN) PO PRN (20:15)
[2021-10-10] MEDS ORDERED: SCOPOLAMINE 1.5 MG (TRANSDERM-SCOP) PATCH TOP SCH (21:00)
[2021-10-11] MEDS: SENNA W/DOCUSATE (SENOKOT S) TABLET PO SCH ×2 (09:01→20:14)
--- NOTE | 2021-10-11 16:37 | Oncology Consultation ---
Visit Information Visit Information Date of Admission Oct 05, 2021 at 17:22 Attending Physician [facility] Admitting Physician Admitting Physician: Rosana Alfaro MD Attending Physician: Palak Aranda DO Chief Complaint Multiple liver lesions, malignancy management options Interval History Mr. Kyle is a 66 year old white man admitted for abdominal pain, abnormal LFTs, ascites, cachectic, anemia Hb 6.[address] showed multiple liver lesions. CT guided liver lesion biopsy showed metastatic melanoma. Pt is not able to take care of himself at home. The family is discussing jail placement. I consulted the patient on: 10/11/21 16:35 Time Seen by Provider: 17:08 Review of Systems Constitutional: weakness, weight loss EENTM: see HPI Respiratory: short of breath Cardiovascular: palpitations Gastrointestinal: abdominal pain (RUQ) Skin: dryness, hx of skin cancer Health Status Allergies Coded Allergies: No Known Drug Allergies (Unverified , 06/14/20) Home Medications Aspirin (Aspirin EC) 81 Mg Tablet.dr, 81 MG PO DAILY, (Reported) [id number] Hx Patient Social History Marrital Status: single Employed/Student: retired Smoking Status: Current Everyday Smoker Type Used: Cigarettes 2nd Hand Smoke Exposure: No Recent Hopitalizations: No Alcohol Use?: No Have you traveled recently?: No Family Medical History Significant Family History: No Pertinent Family Hx Physical Exam Vital Signs Vital Signs - First Documented 10/05/21 11:15 Temp 36.5 Pulse 85 Resp 18 B/P (MAP) 114/66 (82) Pulse Ox 92 O2 Delivery Room Air Capillary Refill : Less Than 3 Seconds Height, Weight, BMI Height: '" Weight: lbs. oz. kg; 23.93 BMI Method: General Appearance: No Apparent Distress, Cachetic HEENT: PERRL/EOMI Respiratory: No Accessory Muscle Use, No Respiratory Distress Gastrointestinal: Soft, Distended Extremity: Pedal Edema Neurologic/Psychiatric: Alert, Oriented x3 Data Review Labs Laboratory Tests 10/09/21 05:48: Red Blood Count 3.02L, Hemoglobin 10.8L, Hematocrit 32L, Mean Corpuscular Volume 105H, Mean Corpuscular Hemoglobin 36H, Red Cell Distribution Width 24.5H, Neutrophils (%) (Auto) 85H, Lymphocytes (%) (Auto) 9L, Neutrophils # (Auto) 8.3H , Lymphocytes # (Auto) 0.8L, Blood Urea Nitrogen 31H, Creatinine 1.68H, Glucose Level 69L, Calcium Level 7.8L, Total Bilirubin 2.1H, Aspartate Amino Transf (AST/SGOT) 154H, Alanine Aminotransferase (ALT/SGPT) 107H, Alkaline Phosphatase 412H, Total Protein 5.3L, Albumin 2.7L 10/09/21 10:42: Prothrombin Time 16.5H, Activated Partial Thromboplast Time 40H 10/09/21 22:33: Glucometer 180H 10/10/21 05:51: Red Blood Count 2.31L, Hemoglobin 8.4#L, Hematocrit 24L, Mean Corpuscular Volume 104H, Mean Corpuscular Hemoglobin 36H, Red Cell Distribution Width 23.9H, Neutro phils (%) (Auto) 86H, Lymphocytes (%) (Auto) 7L, Lymphocytes # (Auto) 0.5L, Blood Urea Nitrogen 37H, Creatinine 1.97H, Glucose Level 145H, Calcium Level 7.4L, Total Bilirubin 1.7H, Aspartate Amino Transf (AST/SGOT) 166H, Alanine Aminotransferase (ALT/SGPT) 107H, Alkaline Phosphatase 373H, Total Protein 4.3L, Albumin 2.1L, Potassium Level 3.5L 10/10/21 09:55: 10/10/21 19:46: Impression & Plan Impression & Plan Pathology report from the liver biopsy: metastatic melanoma IMP: 1. Metastatic melanoma multiple liver lesions, abnormal LFTs and ascites. 2. 66 year old white man, ECOG score 3 as of 10-11-2021, poor performance status, cachetic. 3. Anemia Hb 6.7 due to inner liver lesion bleeding and also GI bleeding, s/p one unit RBC transfusion during the admission. 4. CHF Rec: 1. I had extensive discussion with patient and her sister this afternoon. I told them the diagnosis and poor prognosis. I also told them that he is not able to handle cancer treatment as of his current condition. According to NCCN (national comprehensive cancer network) guideline for the metastatic metastatic melanoma, poor performance ECOG socre 3 or above, recommendation is comfort care/hospice. Patient stated that he is going to fight this and he has Vinnie Delvin to fight for him. I told him that if he is getting better and improves his performance status, i.e. he can eat and drink better and able to walk by himself, I will be happy to see him as out-pt at [facility] to re-evaluate the situation and options. Pt is aware of that he is not able to go home by himself. He wants to go jail. I suggested him to go to nursing facility with hospice care. If he is getting better, he can revoke the hospice and come to [facility] to see me. I left them my card for them to call when his performance is getting better. Dr Aranda to decide the discharge plan with hospice. STEFFI ADAM MD Oct 11, 2021 16:37
[2021-10-12] MEDS: SENNA W/DOCUSATE (SENOKOT S) TABLET PO SCH ×2 (10:07→21:00)
--- NOTE | 2021-10-12 12:33 | Progress Note - Hospitalist ---
Subjective HPI/CC On Admission Date Seen by Provider: Oct 11, 2021 Time Seen by Provider: 11:00 Subjective/Events-last exam Inadvertently missed note yesterday Had an in-depth discussion with patient and family regarding terminal cancer Dr. Markham will come and talk to him Patient in multisystem organ failure Objective Exam Vital Signs Vital Signs Date Time Temp Pulse Resp B/P (MAP) Pulse Ox O2 Delivery O2 Flow Rate FiO2 10/12/21 20:46 Nasal Cannula 3.00 10/11/21 09:00 96 10/10/21 19:44 36.8 78 19 82/50 (61) Capillary Refill : Less Than 3 Seconds General Appearance: No Apparent Distress, WD/WN, Chronically ill, Other (Fetor hepaticus) Results/Procedures Lab Patient resulted labs reviewed. Assessment/Plan Assessment and Plan Assess & Plan/Chief Complaint DNR Comfort care DAVID CHAVARRIA DO Oct 12, 2021 12:32
--- NOTE | 2021-10-12 12:33 | Progress Note - Hospitalist ---
Subjective HPI/CC On Admission Date Seen by Provider: Oct 12, 2021 Time Seen by Provider: 11:30 Subjective/Events-last exam Awaiting placement with snf and hospice Sister at the bedside Fetor hepaticus noted Review of Systems General: Fatigue, Malaise Objective Exam Vital Signs Vital Signs Date Time Temp Pulse Resp B/P (MAP) Pulse Ox O2 Delivery O2 Flow Rate FiO2 10/12/21 20:46 Nasal Cannula 3.00 10/11/21 09:00 96 10/10/21 19:44 36.8 78 19 82/50 (61) Capillary Refill : Less Than 3 Seconds General Appearance: No Apparent Distress, WD/WN, Chronically ill Results/Procedures Lab Patient resulted labs reviewed. Assessment/Plan Assessment and Plan Assess & Plan/Chief Complaint DNR Comfort care DAVID CHAVARRIA DO Oct 12, 2021 12:33
[2021-10-13] MEDS: SENNA W/DOCUSATE (SENOKOT S) TABLET PO SCH (08:38)
[2021-10-13] MEDS ORDERED: LORAZ30SOL PO (12:42)
[2021-10-13] MEDS ORDERED: MORP100S7 PO (12:42)
--- NOTE | 2021-10-13 12:42 | Discharge Summary ---
Discharge Summary Hospital Course Was the Problem List Reviewed?: Yes Problems/Dx: (1) Bilateral leg edema Status: Acute (2) Elevated brain natriuretic peptide (BNP) level (3) Acute kidney injury (4) Pleural effusion (5) Cigarette smoker (6) Liver masses Status: Acute Hospital Course Date of Admission: Oct 05, 2021 at 17:22 Admission Diagnosis : Family Physician/Provider: [facility] Date of Discharge: 10/13/21 Discharge Diagnosis: liver failure, cancer Hospital Course: Pt had a lengthy hospital course for 9 days after he was admitted for weakness. He was found to be in liver and kidney failure. Liver mass is consistent with neoplastic process status post liver biopsy showed malignant melanoma. He was overall so debilitated he would not meet criteria for any type of cancer treatment. He was discharged on hospice to the group home. Labs and Pending Lab Test: Home Meds Active Lorazepam 2 Mg/Ml Oral.conc 1 Mg PO Q2H PRN Morphine Conc. 20mg/ml (Morphine Sulfate) 100 Mg/5 Ml (20 Mg/Ml) Solution 5 Mg PO Q4H PRN Reported Aspirin EC (Aspirin) 81 Mg Tablet.dr 81 Mg PO DAILY Assessment/Pt Instructions PCP 1 week Discharge Planning: <30 minutes discharge planning Discharge Instructions Discharge Diet: No Restrictions Discharge Physical Examination Vital Signs Vital Signs Date Time Temp Pulse Resp B/P (MAP) Pulse Ox O2 Delivery O2 Flow Rate FiO2 10/13/21 09:00 Nasal Cannula 3.00 10/11/21 09:00 96 10/10/21 19:44 36.8 78 19 82/50 (61) General Appearance: No Apparent Distress, WD/WN Allergies: Coded Allergies: No Known Drug Allergies (Unverified , 06/14/20) Discharge Summary Date of Admission Oct 05, 2021 at 17:22 Date of Discharge Discharge Date: Oct 13, 2021 Admission Diagnosis Assessment: 1. Abdominal mass is consistent with neoplastic with wide spread metastasis 2. Ascites 3. 3+ pitting edema 4. Severe anemia requiring transfusion Comfort Measures/ End of Life Care: Comfort Measures Discharge Diagnosis DNR Comfort care (1) Bilateral leg edema Status: Acute Assessment & Plan: I suspect this is primarily related to his acute kidney injury and liver masses with abnormal liver function. There may be some small component of acute heart failure with preserved ejection. The diuretic has been discontinued. He does not appear to have any acute, active cardiac issues at this time. Cardiology will follow from [facility]. He does not need long-term cardiology follow-up following discharge. (2) Elevated brain natriuretic peptide (BNP) level Assessment & Plan: His echocardiogram did not show any significant structural heart disease to explain heart failure. He seems to have had total body volume overload and has low protein and albumin levels. I suspect he is just third spacing due to hypotonic state. His edema has resolved and the creatinine went up so the diuretic was discontinued which is reasonable. I do not think he will need any diuretic long-term. (3) Acute kidney injury Assessment & Plan: His creatinine level was slightly elevated at the time of admission but was similar 1 year ago. As above, diuretic has now been discontinued. (4) Pleural effusion Assessment & Plan: I suspect this may be related to the hepatic insufficiency. A neoplastic effusion would also be in the differential diagnosis. His follow- up chest x-ray showed some improvement in the effusion but not completely resolved. (5) Cigarette smoker Assessment & Plan: He needs to quit smoking. He was counseled in this regard. His cigarette smoking certainly puts him at increased risk for having multiple different cancers. (6) Liver masses Status: Acute Assessment & Plan: The biopsy was performed on 10/09 and results are pending. DAVID CHAVARRIA DO Oct 13, 2021 12:42
[2021-10-13 16:59] VITALS: BP 82/50
== END 2021-10-13 16:00 | disposition hospice, inpatient (51) | DRG 435 ==
LOC: EDUNIT# 11:10 → ER FS 11:13 → CSD 17:22 → 4TH 10-06 14:05
PROVIDERS: ADMIT Family Medicine; ATTEND Internal Medicine
PROC: 0FB13ZX Excision of Right Lobe Liver, Percutaneous Approach, Diagnostic (ICD-10-PCS; principal; 2021-10-10)
DX: C78.7 Secondary malignant neoplasm of liver and intrahepatic bile duct (principal); J96.01 Acute respiratory failure with hypoxia; I50.31 Acute diastolic (congestive) heart failure; N17.9 Acute kidney failure, unspecified; J90 Pleural effusion, not elsewhere classified; R18.8 Other ascites; M48.54XA Collapsed vertebra, not elsewhere classified, thoracic region, initial encounter for fracture; R64 Cachexia; C16.9 Malignant neoplasm of stomach, unspecified; K92.2 Gastrointestinal hemorrhage, unspecified; Z66 Do not resuscitate; Z51.5 Encounter for palliative care; F17.210 Nicotine dependence, cigarettes, uncomplicated; D63.8 Anemia in other chronic diseases classified elsewhere; Z68.23 Body mass index [BMI] 23.0-23.9, adult
CPT/HCPCS: 36415; 51701; 70450; 71046; 74174; 74176; 76705; 77012; 80053; 80306; 80320; 81000; 82140; 82947; 83690; 83880; 85007; 85014; 85018; 85025; 85027; 85610; 85730; 86850; 86900; 86901; 86920; 93005; 93306; 94760; 96360; Q9967